=== PATIENT | male | born 1940 | race Caucasian/White ===

== ENCOUNTER 2016-06-17 21:35 | Emergency (ER) | payer MEDICARE, OTHER ==
[2016-06-17 21:47] VITALS: BMI 30.8
--- NOTE | 2016-06-17 22:00 | PDOC ---
History of Present Illness - History of Present Illness Initial Comments: 06/17/16 22:02 The patient is a 76 year old male with a significant past medical history of HTN , HLD, OK, prostate cancer, and chronic lower back pain who presents to the Emergency Department with complaints of chest pain since 2 hours ago. He states that last time he had chest pain was a year ago. Pt states that he takes oxycodone for his back pain. He denies fever, chills, abdominal pain, nausea, vomiting, diarrhea, cough, SOB, palpitations, headache. PMH/PSH: knee surgery, hernia repair ALL: levofloxacin <Susannah Geronimo - Last Filed: 06/17/16 22:06> <Heidi Agudelo - Last Filed: 06/18/16 06:18> - General Chief Complaint: Chest Pain Stated Complaint: CHEST PAIN Time Seen by Provider: 06/17/16 21:52 Past History <Susannah Geronimo - Last Filed: 06/17/16 22:06> - Past Medical History Cancer: Yes (PROSTATE CA) Cardiac Disorders: Yes (OK) GI Disorders: Yes (HERNIA) HTN: Yes - Surgical History Abdominal Surgery: Yes (HERNIA REPAIR) - Psycho/Social/Smoking Cessation Hx Anxiety: No Suicidal Ideation: No Smoking Status: No Smoking History: Never smoked Have you smoked in the past 12 months: No Number of Cigarettes Smoked Daily: 0 Hx Alcohol Use: No Substance Use Type: None <Heidi Agudelo - Last Filed: 06/18/16 06:18> - Past Medical History Allergies/Adverse Reactions: Allergies Allergy/AdvReac Type Severity Reaction Status Date / Time levofloxacin [Levofloxacin] Allergy Mild Itching Verified 06/17/16 21:44 Home Medications: Ambulatory Orders Amlodipine Besylate [Norvasc -] 5 mg PO DAILY #30 tablet 04/01/14 Aspirin [ASA -] 81 mg PO DAILY #30 tab.chew 04/01/14 Atorvastatin Ca [Lipitor] 10 mg PO HS #30 tablet 04/01/14 Lisinopril [Prinivil] 20 mg PO DAILY #30 tablet 04/01/14 Metoprolol Succinate [Toprol XL -] 25 mg PO DAILY #30 tab.sr.24h 04/01/14 Oxycodone HCl [Oxaydo] 7.5 mg PO ASDIR PRN 06/17/16 Oxycodone HCl/Acetaminophen [Percocet 5/325 -] 1 tab PO Q6H #20 tablet MDD 4 Polyethylene Glycol 3350 [Miralax (For Daily Use) -] 17 gm PO ONCE #1 bottle Review of Systems - Review of Systems Able to Perform ROS?: Yes Comments:: 06/17/16 22:03 GENERAL/CONSTITUTIONAL: No: fever, chills, weakness, loss of appetite. HEAD, EYES, EARS, NOSE AND THROAT: No: change in vision, ear pain, discharge, sore throat, throat swelling. CARDIOVASCULAR: Yes: chest pain No: lightheadedness, palpitations, syncope RESPIRATORY: No: cough, shortness of breath, wheezing, hemoptysis, stridor. GASTROINTESTINAL: No: nausea, vomiting, abdominal cramping, diarrhea, rectal bleeding, constipation. GENITOURINARY: No: dysuria, hematuria, frequency, urgency, flank pain. MUSCULOSKELETAL: Yes: back pain No: neck pain, muscle swelling SKIN AND BREASTS: No: lesions, pallor, rash or easy bruising. NEUROLOGIC: No: headache, vertigo, paresthesias, weakness ENDOCRINE: No: unexplained weight gain or loss HEMATOLOGIC/LYMPHATIC: No: anemia, easy bleeding, swelling nodes All Other Systems: Reviewed and Negative <Susannah Geronimo - Last Filed: 06/17/16 22:06> *Physical Exam - Vital Signs Last Vital Signs Temp Pulse Resp BP Pulse Ox 98.4 F 68 24 112/90 97 06/17/16 21:45 06/17/16 21:45 06/17/16 21:45 06/17/16 21:45 06/17/16 21:45 - Physical Exam Comments: 06/17/16 22:04 GENERAL: The patient is in no acute distress. HEAD: Normal with no signs of trauma. EYES: PERRLA, EOMI, sclera anicteric, conjunctiva clear. ENT: Ears normal, nares patent, oropharynx clear without exudates. Moist mucous membranes. NECK: Normal range of motion, supple without lymphadenopathy, JVD, or masses. LUNGS: Breath sounds equal, clear to auscultation bilaterally. No wheezes, and no crackles. HEART:Regular rate and rhythm, normal S1 and S2 without murmur, rub or gallop. ABDOMEN: Soft, nontender, normoactive bowel sounds. No guarding, no rebound. EXTREMITIES: +bilateral lower extremities pitting edema. Normal range of motion. No clubbing or cyanosis. No erythema, or tenderness. NEUROLOGICAL: Cranial nerves II through XII grossly intact. Normal speech. No focal neurological deficits. MUSCULOSKELETAL: Back non-tender to palpation, no CVA tenderness SKIN: Warm, Dry, normal turgor, no rashes or lesions noted. <Susannah Geronimo - Last Filed: 06/17/16 22:06> - Vital Signs Last Vital Signs Temp Pulse Resp BP Pulse Ox 98.4 F 68 24 112/90 97 06/17/16 21:45 06/17/16 21:45 06/17/16 21:45 06/17/16 21:45 06/17/16 21:45 <Heidi Agudelo - Last Filed: 06/18/16 06:18> ED Treatment Course - LABORATORY CBC & Chemistry Diagram: 06/17/16 21:54 06/17/16 21:54 <Susannah Geronimo - Last Filed: 06/17/16 22:06> - LABORATORY CBC & Chemistry Diagram: 06/17/16 21:54 06/17/16 21:54 - RADIOLOGY Radiology Studies Ordered: Category Date Time Status CHEST X-RAY PORTABLE* [RAD] Stat Radiology 06/17/16 21:52 Ordered <Heidi Agudelo - Last Filed: 06/18/16 06:18> Medical Decision Making - Medical Decision Making 06/18/16 00:45 Patient Name: Luis Granados THIS IS A PRELIMINARYREPORT FROM IMAGING SUPPORT DIRECTOR EXAM: CT lumbar spine without contrast IMAGES: 406 EXAM DATE AND TIME: 2016-06-18 00:12:44.0 REASON FOR EXAM: Low back pain radiating to left COMPARISON: No FINDINGS: There is focal large indentation of the superior endplate of L1. However, this looks like it may have been caused by a severe Schmorl's node and could be chronic. If there are prior CTs or x-rays of the lumbar spine I can perform a comparative interpretation to see if this was present previously. Renal cysts are incidentally noted. The remainder of the lumbar vertebrae are normally aligned without fracture or destructive bone lesion. Degenerative changes: One multilevel degenerative disc thinning. At T12-L there is disc bulging and facet hypertrophy mildly narrowing the canal. At L1-2, there is disc bulging and posterior element hypertrophy resulting in moderate canal stenosis. At L2-3, there is , disc bulging and posterior hypertrophy resulting in moderate to severe canal stenosis. At L3-4, there is disc bulging and posterior element hypertrophy resulting in severe canal stenosis. At L4-5, there is disc bulging and posterior element hypertrophy resulting in severe canal stenosis. At L5-S1, there is disc bulging and facet hypertrophy resulting in moderate narrowing of the transverse dimension of the canal. Please note, however, that the cause of the patient's large body habitus causing image degradation and because this is CT, assessment of the degree of canal stenosis may not be completely accurate. MRI is more sensitive for this. THIS DOCUMENT HAS BEEN ELECTRONICALLY SIGNED 06/18/16 06:12 Pt comes with acute mid sternal chest pain and chronic low back pain. His low back pain is secondary to spinal stenosis. I got a CT of his lumbar spine as he has a history of prostate cancer and I want to make sure that he has no metastasis to the spine. CP is unlikely to be cardiac pain, as 2 sets of cardiac enzymes are normal, Chest portable XR is normal, and EKG shows non specific T wave changes but otherwise NSR. <Heidi Agudelo - Last Filed: 06/18/16 06:18> *DC/Admit/Observation/Transfer - Attestations Scribe Attestion: 06/17/16 22:05 Documentation prepared by Susannah Geronimo, acting as nuclear medical tech for Heidi Agudelo MD. <Susannah Geronimo - Last Filed: 06/17/16 22:06> - Discharge Dispostion Admit: No <Heidi Agudelo - Last Filed: 06/18/16 06:18> Diagnosis at time of Disposition: Atypical chest pain, Spinal stenosis - Discharge Dispostion Disposition: HOME Condition at time of disposition: Stable - Prescriptions Prescriptions: Polyethylene Glycol 3350 [Miralax (For Daily Use) -] 17 gm PO ONCE #1 bottle Oxycodone HCl/Acetaminophen [Percocet 5/325 -] 1 tab PO Q6H #20 tablet MDD 4 - Referrals Referrals: STAFF,NOT ON [Primary Care Provider] - - Patient Instructions Printed Discharge Instructions: DI for Atypical Chest Pain, Spinal Stenosis
[2016-06-17] MEDS ORDERED: OXYCODONE/APAP 5/325MG COMBO TABLET PO ONE (22:02)
[2016-06-17] MEDS ORDERED: OXYCODONE/APAP 5/325MG COMBO TABLET ONE (22:05)
[2016-06-17 22:08] LABS: BASOPHIL 1.9 % (0-2.0); EOSINOPHIL 1.9 % (0-4.5); MCH 32.1 pg (25.7-33.7); MCHC 34.6 g/dl (32.0-35.9); MEAN CELL VOLUME 92.7 fl (80-96); NEUTROPHILS 61.8 % (42.8-82.8); PLATELET COUNT 160 K/MM3 (134-434); RDW 14.5 % (11.9-15.9); WHITE BLOOD COUNT 6.5 K/mm3 (4.0-10.0)
[2016-06-17 22:32] LABS: INR 1.12 (0.82-1.09); PROTHROMBIN TIME (PATIENT) 12.3 SEC (9.98-11.88)
[2016-06-17 22:41] LABS: ALBUMIN 3.7 g/dl (3.4-5.0); ANION GAP 9 (8-16); BILIRUBIN,TOTAL 0.7 mg/dL (0.2-1.0); CALCIUM 8.7 mg/dL (8.5-10.1); CO2 29 mmol/L (21-32); CREATININE 1.2 mg/dL (0.7-1.3); GLUCOSE,RANDOM 110 mg/dL (74-106); SGOT/AST 22 U/L (15-37); SGPT/ALT 35 U/L (12-78)
[2016-06-17 22:44] LABS: ALK PHOS 91 U/L (45-117); TROPONIN I < 0.02 ng/ml (0.00-0.05)
[2016-06-18 02:59] LABS: TROPONIN I < 0.02 ng/ml (0.00-0.05)
[2016-06-18 03:53] VITALS: BP 126/74; PULSE 71; TEMP 98.1
--- NOTE | 2016-06-18 23:26 | EKG ---
Test Reason : Blood Pressure : / mmHG Vent. Rate : 068 BPM Atrial Rate : 068 BPM P-R Int : 196 ms QRS Dur : 114 ms QT Int : 418 ms P-R-T Axes : 029 -71 017 degrees QTc Int : 444 ms NORMAL SINUS RHYTHM INCOMPLETE RIGHT BUNDLE BRANCH BLOCK LEFT ANTERIOR FASCICULAR BLOCK ABNORMAL ECG WHEN COMPARED WITH ECG OF 30-MAR-2014 10:51, NO SIGNIFICANT CHANGE WAS FOUND Confirmed by QUINN ALMEIDA, XIANG ([id number]) on 06/18/2016 11:26:06 PM Referred By: Confirmed By:XIANG BALL MD
== END 2016-06-18 03:53 | disposition home or self-care (01) ==
LOC: JER 21:35
DX: R07.89 Other chest pain (principal); M48.06 Spinal stenosis, lumbar region; I25.2 Old myocardial infarction; I10 Essential (primary) hypertension; E78.00 Pure hypercholesterolemia, unspecified; Z85.46 Personal history of malignant neoplasm of prostate
CPT/HCPCS: 36415; 71010-TC; 72131-TC; 80053; 82550; 83880; 84484; 85025; 85610; 93005; 93010; 99284-25

== ENCOUNTER 2016-07-27 10:27 | Emergency (ER) | payer MEDICARE, OTHER ==
[2016-07-27 10:37] VITALS: BP 160/98; PULSE 77; TEMP 97.6; BMI 31.5
[2016-07-27] MEDS ORDERED: OXYCODONE/APAP 5/325MG COMBO TABLET PO ONE (11:29)
[2016-07-27] MEDS ORDERED: OXYCODONE/APAP 5/325MG COMBO TABLET ONE (11:34)
[2016-07-27 11:52] LABS: URINE APPEARANCE CLOUDY; URINE BILIRUBIN NEGATIVE (NEGATIVE); URINE BLOOD NEGATIVE (NEGATIVE); URINE COLOR YELLOW; URINE GLUCOSE (UA) NEGATIVE (NEGATIVE); URINE KETONE NEGATIVE (NEGATIVE); URINE LEUK ESTERASE NEGATIVE (NEGATIVE); URINE NITRITE NEGATIVE (NEGATIVE); URINE PROTEIN NEGATIVE (NEGATIVE); URINE UROBILINOGEN NEGATIVE E.U./dl (0.2-1.0)
--- NOTE | 2016-07-27 14:37 | PDOC ---
History of Present Illness - General Chief Complaint: Pain Stated Complaint: RIGHT SIDE PAIN BACK PAIN Time Seen by Provider: 07/27/16 11:09 History Source: Patient Exam Limitations: No Limitations - History of Present Illness Initial Comments: 07/27/16 14:32 CC continued left lower back pain x >1 year; also chronic right neck pain, also many months; better post percocet in past, none at home; also lives alone Severity: reports: moderate Pain Location: reports: back, neck Method of Injury: Yes: other (no new trauma) Modifying Factors: improves with: pain medication Past History - Past Medical History Allergies/Adverse Reactions: Allergies Allergy/AdvReac Type Severity Reaction Status Date / Time levofloxacin [Levofloxacin] Allergy Mild Itching Verified 07/27/16 10:33 Home Medications: Ambulatory Orders Amlodipine Besylate [Norvasc -] 5 mg PO DAILY #30 tablet 04/01/14 Aspirin [ASA -] 81 mg PO DAILY #30 tab.chew 04/01/14 Atorvastatin Ca [Lipitor] 10 mg PO HS #30 tablet 04/01/14 Lisinopril [Prinivil] 20 mg PO DAILY #30 tablet 04/01/14 Metoprolol Succinate [Toprol XL -] 25 mg PO DAILY #30 tab.sr.24h 04/01/14 Oxycodone HCl [Oxaydo] 7.5 mg PO ASDIR PRN 06/17/16 Oxycodone HCl/Acetaminophen [Percocet 5/325 -] 1 tab PO Q6H #20 tablet MDD 4 Polyethylene Glycol 3350 [Miralax (For Daily Use) -] 17 gm PO ONCE #1 bottle Cancer: Yes (PROSTATE CA) Cardiac Disorders: Yes ([place]) GI Disorders: Yes (HERNIA) HTN: Yes - Surgical History Abdominal Surgery: Yes (HERNIA REPAIR) - Psycho/Social/Smoking Cessation Hx Anxiety: No Suicidal Ideation: No Smoking Status: No Smoking History: Never smoked Have you smoked in the past 12 months: No Number of Cigarettes Smoked Daily: 0 Information on smoking cessation initiated: No Hx Alcohol Use: No Drug/Substance Use Hx: No Substance Use Type: None Review of Systems - Review of Systems Constitutional: No: Chills, Fever, Malaise HEENTM: No: Blurred Vision, Throat Pain, Throat Swelling Respiratory: No: Cough, Wheezing Cardiac (ROS): No: Symptoms Reported, Chest Pain ABD/GI: No: Symptoms Reported : No: Symptoms Reported, Flank Pain, Hematuria, Incontinence Musculoskeletal: Yes: Back Pain, Muscle Pain, Neck Pain Integumentary: No: Bruising Neurological: No: Symptoms reported, Headache, Numbness, Paresthesia, Tingling, Weakness, Dizziness *Physical Exam - Vital Signs Last Vital Signs Temp Pulse Resp BP Pulse Ox 97.6 F 77 18 160/98 100 07/27/16 10:33 07/27/16 10:33 07/27/16 10:33 07/27/16 10:33 07/27/16 10:33 - Physical Exam General Appearance: Yes: Appropriately Dressed. No: Apparent Distress HEENT: positive: TMs Normal, Pharynx Normal Neck: positive: Tender (right lateral posterior lower nck, no redness, no rash, no masses with limited rotation), Decreased range of motion. negative: Rigid Respiratory/Chest: positive: Chest Tender, Lungs Clear Musculoskeletal: positive: Other (tender area left perispinal area at level L 3 - L5) ED Treatment Course - ADDITIONAL ORDERS Additional order review: Laboratory Results 07/27/16 11:29 Urine Color Yellow Urine Appearance Cloudy Urine pH 7.0 Ur Specific [place] 1.013 Urine Protein Negative Urine Glucose (UA) Negative Urine Ketones Negative Urine Blood Negative Urine Nitrite Negative Urine Bilirubin Negative Urine Urobilinogen Negative Ur Leukocyte Esterase Negative - RADIOLOGY Radiology Studies Ordered: Category Date Time Status SPINE-CERVICAL [RAD] Stat Radiology 07/27/16 13:33 Completed - Medications Given in the ED: ED Medications Discontinued Medications Generic Name Dose Route Start Last Admin Trade Name Justin PRN Reason Stop Dose Admin Oxycodone/Acetaminophen 1 combo 07/27/16 11:29 07/27/16 11:35 Percocet 5/325 - PO 07/27/16 11:30 1 combo ONCE ONE Administration Medical Decision Making - Medical Decision Making 07/27/16 14:43 spoke with case management will set up OP NVS for home visit w; spoke with PCP office will see pt in office at 9 am tomorrow; pt agrees with plan *DC/Admit/Observation/Transfer Diagnosis at time of Disposition: Chronic neck and back pain - Discharge Dispostion Disposition: HOME Condition at time of disposition: Stable Admit: No - Patient Instructions Additional Instructions: please see Dr Chopra in office tomorrow at 9 am
== END 2016-07-27 14:59 | disposition home or self-care (01) ==
LOC: JERFT 10:27
DX: M54.5 Low back pain (principal); M54.2 Cervicalgia; G89.29 Other chronic pain; I25.2 Old myocardial infarction; I10 Essential (primary) hypertension; Z85.46 Personal history of malignant neoplasm of prostate
CPT/HCPCS: 72050-TC; 81003; 99281-25

== ENCOUNTER 2016-11-29 13:02 | Emergency (ER) | payer OTHER ==
[2016-11-29 13:18] VITALS: BMI 31.2
--- NOTE | 2016-11-29 14:23 | PDOC ---
History of Present Illness - General History Source: Patient Exam Limitations: No Limitations - History of Present Illness Initial Comments: 11/29/16 14:23 The patient is a 76 year old male with a significant past medical history of HTN, HLD, MS, prostate cancer (7 years ago), and chronic lower back pain( managed with percocet) who presents to the Emergency Department with back pain for 3 days. He states that he has been taking his oxycodone but the pain has been worse than usual. He states that the back pain radiates to the left leg and chest. He also reports dizziness, chills, and leg and toe swelling PCP - Dr. Chopra <Sakina Neal - Last Filed: 11/29/16 14:23> - General History Source: Patient Exam Limitations: No Limitations - History of Present Illness Initial Comments: 11/29/16 14:14 <Marcelina Neil - Last Filed: 11/29/16 19:09> - General Chief Complaint: Pain Stated Complaint: PAIN/ LT SIDE Time Seen by Provider: 11/29/16 13:28 Past History <Sakina Neal - Last Filed: 11/29/16 14:23> - Past Medical History Anemia: No Asthma: No Cancer: Yes (PROSTATE CA) Cardiac Disorders: Yes (MS) CVA: No COPD: No CHF: No Dementia: No Diabetes: No GI Disorders: No Disorders: No HTN: Yes Hypercholesterolemia: Yes Liver Disease: No Seizures: No Thyroid Disease: No - Surgical History Abdominal Surgery: Yes (HERNIA REPAIR) Orthopedic Surgery: Yes (knee replacement) - Psycho/Social/Smoking Cessation Hx Anxiety: No Suicidal Ideation: No Smoking Status: No Smoking History: Never smoked Have you smoked in the past 12 months: No Number of Cigarettes Smoked Daily: 0 Hx Alcohol Use: No Drug/Substance Use Hx: No Substance Use Type: None Hx Substance Use Treatment: No <Marcelina Neil - Last Filed: 11/29/16 19:09> - Past Medical History Allergies/Adverse Reactions: Allergies Allergy/AdvReac Type Severity Reaction Status Date / Time levofloxacin [Levofloxacin] Allergy Mild Itching Verified 11/29/16 13:17 Home Medications: Ambulatory Orders Aspirin [ASA -] 81 mg PO DAILY #30 tab.chew 04/01/14 Atorvastatin Ca [Lipitor] 10 mg PO HS #30 tablet 04/01/14 Amlodipine Besylate [Norvasc -] 10 mg PO DAILY 08/03/16 Brimonidine Tartrate/Timolol [Combigan Eye Drops] 5 ml OP BID 08/03/16 Clopidogrel Bisulfate [Clopidogrel] 75 mg PO DAILY 08/03/16 Gabapentin [Neurontin -] 100 mg PO Q8H 08/03/16 Metoprolol Succinate [Toprol Xl -] 100 mg PO DAILY 08/03/16 Lisinopril/Hydrochlorothiazide [Lisinopril-Hctz 20-12.5 mg Tab] 1 each PO DAILY 08/11/16 Polyethylene Glycol 3350 [Miralax (For Daily Use) -] 17 gm PO ONCE #1 bottle 08/11 Oxycodone HCl/Acetaminophen [Percocet 5-325 mg Tablet] 1 tab PO TID #90 tablet MDD 3 11/21/16 Review of Systems - Review of Systems Able to Perform ROS?: Yes Comments:: 11/29/16 14:24 GENERAL/CONSTITUTIONAL: No fever or chills. No weakness. HEAD, EYES, EARS, NOSE AND THROAT: No change in vision. No ear pain or discharge. No sore throat. GASTROINTESTINAL: No nausea, vomiting, diarrhea or constipation. GENITOURINARY: No dysuria, frequency, or change in urination. CARDIOVASCULAR: No chest pain or shortness of breath. RESPIRATORY: No cough, wheezing, or hemoptysis. MUSCULOSKELETAL: +back pain. No joint or muscle swelling or pain. No neck pain. SKIN: No rash NEUROLOGIC: No headache, vertigo, loss of consciousness, or change in strength/ sensation. ENDOCRINE: No increased thirst. No abnormal weight change. HEMATOLOGIC/LYMPHATIC: No anemia, easy bleeding, or history of blood clots. ALLERGIC/IMMUNOLOGIC: No hives or skin allergy. <Sakina Neal - Last Filed: 11/29/16 14:23> *Physical Exam - Vital Signs Last Vital Signs Temp Pulse Resp BP Pulse Ox 97.7 F 75 20 142/93 98 11/29/16 13:15 11/29/16 13:15 11/29/16 13:15 11/29/16 13:15 11/29/16 13:15 - Physical Exam Comments: 11/29/16 14:24 GENERAL: Awake, alert, and fully oriented, in no acute distress HEAD: No signs of trauma EYES: PERRLA, EOMI, sclera anicteric, conjunctiva clear ENT: Auricles normal inspection, nares patent, Moist mucosa NECK: Normal ROM, supple, no lymphadenopathy, JVD, or masses LUNGS: Breath sounds equal, clear to auscultation bilaterally. No wheezes, and no crackles HEART: Regular rate and rhythm, normal S1 and S2, no murmurs, rubs or gallops ABDOMEN: Soft, nontender, normoactive bowel sounds. No guarding, no rebound. No masses EXTREMITIES: (+) Bilateral lower extremity edema chronic erythematous Normal range of motion. No clubbing or cyanosis. No cords, or tenderness NEUROLOGICAL: (+)No midline spinal tenderness, 5/5 in all extremities motor strength , Patellar reflexes normal.Normal speech SKIN: Warm, Dry, normal turgor, no rashes or lesions noted. <Sakina Neal - Last Filed: 11/29/16 14:23> - Vital Signs Last Vital Signs Temp Pulse Resp BP Pulse Ox 97.7 F 75 20 142/93 98 11/29/16 13:15 11/29/16 13:15 11/29/16 13:15 11/29/16 13:15 11/29/16 13:15 <Marcelina Neil - Last Filed: 11/29/16 19:09> ED Treatment Course - LABORATORY CBC & Chemistry Diagram: 11/29/16 14:07 11/29/16 14:07 <Sakina Neal - Last Filed: 11/29/16 14:23> - LABORATORY CBC & Chemistry Diagram: 11/29/16 14:07 11/29/16 14:07 <Marcelina Neil - Last Filed: 11/29/16 19:09> Medical Decision Making - Medical Decision Making 11/29/16 14:14 76 yo ho HTN HLD prior MS prostate ca, and chronic low back pain, followed by dr. Navarrete for pain, here wtih c/o worseining back pain. pt states has been taking percocet no relief. last took percocet at 7 am. no new weakness or numbnes or tingling. no changes to bowel or bladder. does c/o bilat leg swelling. which he had had in the past. back pain radiates up and down hi left leg and up to his chest. similar to pain in the past. has had a ct of his back may 2016 showing extensive stenosis, compression of L1 endplate by an enlarged node, and DJD. no sob. pcp dr Palencia on exam awake alert lungs clear heart RRR no mrg. abd obese soft NT. ext wwp. mild nonpitting edema. no midline spinal tenderness. lower ext 5/5 strength, sensation intact, patellar reflexes normal differential: worsening of chronic pain, plan xray lumbar spine, pain control. labs with renal function, ekg. reassess. 11/29/16 16:32 pt pain improved will given toradol for additonal relief. labs unremarkable. <Marcelina Neil - Last Filed: 11/29/16 19:09> *DC/Admit/Observation/Transfer - Attestations Scribe Attestion: 11/29/16 14:25 Documentation prepared by AMY Singletary, acting as medical aides teacher for Marcelina Neil MD. <Sakina Neal - Last Filed: 11/29/16 14:23> - Discharge Dispostion Admit: No <Marcelina Neil - Last Filed: 11/29/16 19:09> Diagnosis at time of Disposition: Back pain - Discharge Dispostion Disposition: HOME Condition at time of disposition: Improved - Referrals Referrals: Tali Motley MD [Primary Care Provider] - - Patient Instructions Printed Discharge Instructions: Low Back Pain Additional Instructions: you need to follow up with your [facility] pain specialist . you need to obtain narcotic prescriptions from your pain doctor. return for any problems or concerns.
[2016-11-29] MEDS ORDERED: OXYCODONE/APAP 5/325MG COMBO TABLET PO ONE (14:24)
[2016-11-29] MEDS ORDERED: OXYCODONE/APAP 5/325MG COMBO TABLET ONE (14:26)
[2016-11-29 14:28] LABS: BASOPHIL 1.1 % (0-2.0); EOSINOPHIL 1.6 % (0-4.5); MCHC 34.3 g/dl (32.0-35.9); MEAN CELL VOLUME 90.4 fl (80-96); MEAN PLT VOLUME 9.2 fl (7.5-11.1); NEUTROPHILS 59.5 % (42.8-82.8); PLATELET COUNT 198 K/MM3 (134-434); RDW 13.5 % (11.9-15.9); WHITE BLOOD COUNT 8.2 K/mm3 (4.0-10.0)
[2016-11-29 14:29] LABS: URINE APPEARANCE CLOUDY; URINE BILIRUBIN NEGATIVE (NEGATIVE); URINE BLOOD NEGATIVE (NEGATIVE); URINE COLOR YELLOW; URINE GLUCOSE (UA) NEGATIVE (NEGATIVE); URINE KETONE NEGATIVE (NEGATIVE); URINE LEUK ESTERASE NEGATIVE (NEGATIVE); URINE NITRITE NEGATIVE (NEGATIVE); URINE UROBILINOGEN NEGATIVE E.U./dl (0.2-1.0)
[2016-11-29 14:35] LABS: URINE PROTEIN 1+ (NEGATIVE)
[2016-11-29 14:39] LABS: URINE RBC 1 /hpf (0-3); URINE WBC <1 /hpf (3-5)
[2016-11-29 14:54] LABS: ALK PHOS 84 U/L (45-117); ANION GAP 9 (8-16); BILIRUBIN,TOTAL 0.8 mg/dL (0.2-1.0); CALCIUM 9.3 mg/dL (8.5-10.1); CO2 31 mmol/L (21-32); GLUCOSE,RANDOM 90 mg/dL (74-106); SGOT/AST 21 U/L (15-37); SGPT/ALT 29 U/L (12-78); TOT PROT 7.9 g/dl (6.4-8.2)
[2016-11-29] MEDS ORDERED: KETOROLAC TROMETHAMINE 30 MG/1 ML VIAL IVPUSH ONE (16:27)
[2016-11-29] MEDS ORDERED: KETOROLAC TROMETHAMINE 30 MG/1 ML VIAL ONE (16:34)
[2016-11-29 19:23] VITALS: BP 142/96; PULSE 79; TEMP 97.6
== END 2016-11-29 19:24 | disposition home or self-care (01) ==
LOC: JER 13:02
PROC: 3E0333Z Introduction of Anti-inflammatory into Peripheral Vein, Percutaneous Approach (ICD-10-PCS; principal; 2016-11-29)
DX: M54.5 Low back pain (principal); I10 Essential (primary) hypertension; E78.5 Hyperlipidemia, unspecified; I25.2 Old myocardial infarction; G89.29 Other chronic pain
CPT/HCPCS: 36415; 80053; 81003; 81015; 85025; 96374; 99284-25

== ENCOUNTER 2017-03-20 08:39 | Day surgery (SDC) | payer MEDICARE ==
[2017-03-19 13:50] VITALS: BMI 31.2
[2017-03-20 08:51] LABS: BASOPHIL 1.3 % (0-2.0); EOSINOPHIL 2.1 % (0-4.5); MCH 31.5 pg (25.7-33.7); MCHC 34.5 g/dl (32.0-35.9); MEAN CELL VOLUME 91.3 fl (80-96); MEAN PLT VOLUME 8.4 fl (7.5-11.1); NEUTROPHILS 65.8 % (42.8-82.8); PLATELET COUNT 177 K/MM3 (134-434); RDW 13.3 % (11.9-15.9); WHITE BLOOD COUNT 6.3 K/mm3 (4.0-10.0)
[2017-03-20 09:26] LABS: INR 1.09 (0.82-1.09); PROTHROMBIN TIME (PATIENT) 12.3 SEC (9.98-11.88)
[2017-03-20 12:21] VITALS: BP 134/86; PULSE 58; TEMP 97.8
--- NOTE | 2017-03-22 15:59 | PATH ---
Cytology Non-Gynecological Report Patient Name: JAMMIE RODRIGUEZ [facility]. Rec. #: [id number] /Age/Gender: 1940 (Age: 77) / M Account: [id number] Location: RADIOLOGY CAT S Taken: 03/20/2017 Received: 03/20/2017 Reported: 03/22/2017 Physicians: Alexandr Ryan M.D. Specimen(s) Received MISCELLANEOUS FLUID LEFT NECK CYST Clinical History Neck cyst Final Diagnosis NECK, LEFT, CYST, FINE NEEDLE ASPIRATION: SATISFACTORY FOR EVALUATION NO MALIGNANT CELLS IDENTIFIED. CYSTIC LESION WITH RARE MACROPHAGES AND RARE DEGENERATED CELLS. RARE MACROPHAGES, RARE DEGENERATED CELLS AND CYST/CRYSTALLINE DEBRIS PRESENT. Comment: Further classification is precluded by the absence of sufficient epithelium. Suggest clinical/radiologic correlation. If there is persistent clinical concern for a neoplasm, suggest repeat FNA from of any residual solid component, as clinically warranted. Electronically Signed Laurence Calvo M.D. Gross Description Approximately 50 cc of straw fluid received fixed in 50% alcohol. Two cytofunnels and one cellblock prepared.
== END 2017-03-20 12:20 | disposition home or self-care (01) ==
LOC: JRADIR 08:39
PROVIDERS: ATTEND Otolaryngology
PROC: 07D23ZX Extraction of Left Neck Lymphatic, Percutaneous Approach, Diagnostic (ICD-10-PCS; principal; 2017-03-20)
DX: K11.6 Mucocele of salivary gland (principal)
CPT/HCPCS: 36415; 76942; 85025; 85610; 88173; 88305-TC

== ENCOUNTER 2017-08-26 04:36 | Emergency (ER) | payer MEDICARE ==
[2017-08-26 04:51] VITALS: BP 130/89; PULSE 92; TEMP 97.6; BMI 29.9
--- NOTE | 2017-08-26 05:16 | PDOC ---
History of Present Illness - General Chief Complaint: Pain Stated Complaint: JOINT PAIN Time Seen by Provider: 08/26/17 04:45 - History of Present Illness Initial Comments: 08/26/17 05:03 77yo M hx HTN, HLD, CAD s/p CO, prostate ca (7 years ago) s/p prostatectomy and chronic back and ankle pain followed by pain management presents to the emergency Department with right ankle pain. Patient reports this is similar to his chronic pain, however he presents to the emergency department requesting a injection into his ankle. There has been no change to the severity of the pain. Patient is on Percocet for his chronic pain which she took an hour prior to arrival in the emergency department. He denies any recent injuries to the ankle. Pt able to bear weight on the ankle. He has no other complaints, denies fevers, chills, chest pain, shortness of breath, abdominal pain, Past History - Past Medical History Allergies/Adverse Reactions: Allergies Allergy/AdvReac Type Severity Reaction Status Date / Time levofloxacin [Levofloxacin] Allergy Mild Itching Verified 08/26/17 04:50 Home Medications: Ambulatory Orders Atorvastatin Ca [Lipitor] 10 mg PO HS #30 tablet 04/01/14 Amlodipine Besylate [Norvasc -] 10 mg PO DAILY 08/03/16 Clopidogrel Bisulfate [Clopidogrel] 75 mg PO DAILY 08/03/16 Docusate Sodium [Colace -] 100 mg PO TID 04/16/17 Polyethylene Glycol 3350 [Miralax (For Bowel Prep) -] 17 gm PO DAILY 04/16/17 Baclofen 10 mg PO DAILY 30 Days #30 tablet MDD 1 05/15/17 Lisinopril/Hydrochlorothiazide [Lisinopril-Hctz 20-12.5 mg Tab] 1 each PO DAILY #30 tablet MDD 1 05/15/17 Metoprolol Succinate [Toprol XL -] 100 mg PO DAILY #30 tab.sr.24h MDD 2 Oxycodone HCl/Acetaminophen [Percocet 5-325 mg Tablet] 1 tab PO TID #90 tablet MDD 3 08/09/17 Anemia: No Asthma: No Cancer: Yes (PROSTATE CA) Cardiac Disorders: Yes ([place]) CVA: No COPD: No CHF: No DVT: No Dementia: No Diabetes: No GI Disorders: No Disorders: No HTN: Yes Hypercholesterolemia: Yes Liver Disease: No Seizures: No Thyroid Disease: No - Surgical History Abdominal Surgery: Yes (HERNIA REPAIR) Orthopedic Surgery: Yes (knee replacement) - Suicide/Smoking/Psychosocial Hx Smoking Status: No Smoking History: Never smoked Have you smoked in the past 12 months: No Number of Cigarettes Smoked Daily: 0 Information on smoking cessation initiated: No Hx Alcohol Use: No Drug/Substance Use Hx: No Substance Use Type: None Hx Substance Use Treatment: No Review of Systems - Review of Systems Comments:: 08/26/17 05:06 GENERAL/CONSTITUTIONAL: No fever or chills. No weakness. HEAD, EYES, EARS, NOSE AND THROAT: No change in vision. No ear pain or discharge. No sore throat. GASTROINTESTINAL: No nausea, vomiting, diarrhea or constipation. GENITOURINARY: No dysuria, frequency, or change in urination. CARDIOVASCULAR: No chest pain or shortness of breath. RESPIRATORY: No cough, wheezing, or hemoptysis. MUSCULOSKELETAL: +ankle pain. No neck or back pain. SKIN: No rash NEUROLOGIC: No headache, vertigo, loss of consciousness, or change in strength/ sensation. ENDOCRINE: No increased thirst. No abnormal weight change. HEMATOLOGIC/LYMPHATIC: No anemia, easy bleeding, or history of blood clots. ALLERGIC/IMMUNOLOGIC: No hives or skin allergy. *Physical Exam - Vital Signs Last Vital Signs Temp Pulse Resp BP Pulse Ox 97.6 F 92 H 20 130/89 98 08/26/17 04:50 08/26/17 04:50 08/26/17 04:50 08/26/17 04:50 08/26/17 04:50 - Physical Exam Comments: 08/26/17 05:07 GENERAL: Awake, alert, and fully oriented, in no acute distress HEAD: No signs of trauma EYES: PERRLA, EOMI, sclera anicteric, conjunctiva clear ENT: Auricles normal inspection, hearing grossly normal, nares patent, oropharynx clear without exudates. Moist mucosa NECK: Normal ROM, supple, no lymphadenopathy, JVD, or masses LUNGS: Breath sounds equal, clear to auscultation bilaterally. No wheezes, and no crackles HEART: Regular rate and rhythm, normal S1 and S2, no murmurs, rubs or gallops ABDOMEN: Soft, nontender, normoactive bowel sounds. No guarding, no rebound. No masses EXTREMITIES: FROM, R ankle with ttp anteriorly, no malleolar ttp, mild edema ( present on R ankle as well, symmetric), no deformities, no warmth. 2+ peripheral pulses b/l. Normal strength dorsi and plantar flexion Otherwise: Normal range of motion. No clubbing or cyanosis. No cords, erythema , or tenderness NEUROLOGICAL: Normal speech, cranial nerves intact, negative pronator drift, 5/ 5 strength in all 4 extremities, normal sensation to light touch in all 4 extremities, normal cerebellar exam, normal, steady gait with walker, normal reflexes and tone SKIN: Warm, Dry, normal turgor, no rashes or lesions noted. Medical Decision Making - Medical Decision Making 08/26/17 05:16 77-year-old male with multiple medical problems including chronic back and ankle pain presents the emergency department requesting an injection into his ankle for his chronic pain. On exam no evidence of deformity, and patient is neurovascularly intact, able to bear weight and ambulate around the emergency department with his walker. Patient appears comfortable. Discussed with patient that we do not offer joint injections in the emergency department. Advised patient to continue to take his pain medications and follow-up with his pain management doctor if his pain is not well controlled. I stop reviewed, patient has a current prescription for Percocet through mid August. Patient requests discharge home. We will apply EMLA and Will wrap for comfort at this time. I discussed the physical exam findings, ancillary test results and final diagnoses with the patient. I answered all of the patient's questions. The patient was satisfied with the care received and felt comfortable with the discharge plan and treatment plan. The patient will call their primary care physician within 24 hours to arrange follow-up and will return to the Emergency Department with any new, persistent or worsening symptoms. *DC/Admit/Observation/Transfer Diagnosis at time of Disposition: Chronic pain - Discharge Dispostion Disposition: HOME Condition at time of disposition: Stable - Referrals - Patient Instructions Printed Discharge Instructions: DI for Ankle Pain Additional Instructions: As discussed, follow up with your pain management doctor within 1 week. Follow up with your primary doctor within 1 week. Take your medications as prescribed. Return to the emergency department if you have any new, worsening or concerning symptoms. - Post Discharge Activity - Attestations Physician Attestion: 08/26/17 05:21 I, Dr. Radha Escoto MD, attest that this document has been prepared under my direction and personally reviewed by me in its entirety. I further attest, that it accurately reflects all work, treatment, procedures and medical decision -making performed by me.
[2017-08-26] MEDS ORDERED: LIDOCAINE 2.5%/PRILOCAINE 2.5% (5 Gram/TUBE) TP ONE ×2 (05:22)
== END 2017-08-26 05:30 | disposition home or self-care (01) ==
LOC: JER 04:36
DX: M25.571 Pain in right ankle and joints of right foot (principal); G89.29 Other chronic pain; M54.5 Low back pain; I25.2 Old myocardial infarction; I10 Essential (primary) hypertension; E78.00 Pure hypercholesterolemia, unspecified; Z85.46 Personal history of malignant neoplasm of prostate; Z90.79 Acquired absence of other genital organ(s); Z96.659 Presence of unspecified artificial knee joint
CPT/HCPCS: 99281-25

== ENCOUNTER 2018-07-26 19:03 | Inpatient (IN) | payer OTHER ==
[2018-07-26] MEDS ORDERED: ASPIRIN 81 MG CHEWABLE TABLETS PO ONE (19:12)
--- NOTE | 2018-07-26 19:12 | PDOC ---
Rapid Medical Evaluation Time Seen by Provider: 07/26/18 19:11 Medical Evaluation: Allergies Allergy/AdvReac Type Severity Reaction Status Date / Time levofloxacin [Levofloxacin] Allergy Mild Itching Verified 08/26/17 04:50 07/26/18 19:11 I have performed a brief in-person evaluation of this patient. The patient presents with a chief complaint of:CP x 1 hour Pertinent physical exam findings:anxious with SOB I have ordered the following:cardiac work up The patient will proceed to the ED for further evaluation. Discharge Disposition - Diagnosis Chest pain - Referrals - Patient Instructions - Post Discharge Activity
--- NOTE | 2018-07-26 19:32 | PDOC ---
Attending Attestation - HPI HPI: 07/26/18 22:03 The patient is a 78 year old male, with a significant past medical history of HTN, HLD, CAD s/p UT, prostate ca.(7 years ago s/p prostatectomy), who presents to the emergency department with, chest pain. Patient describes his chest pain as retrosternal, nonpleuritic, pressure-like, burning onsetting after eating with associated nausea and lightheadedness. He notes the pain lasted approximately 90 minutes but, has now resolved. He denies palpitations or orthopnea. He denies any recent fevers, chills, headache or dizziness. He denies any recent nausea, vomit, diarrhea or constipation. He denies any recent dysuria, frequency, urgency or hematuria. Allergies: NKDA <Eboni Machuca - Last Filed: 07/26/18 22:03> - Resident Resident Name: Martin Madison - ED Attending Attestation I have performed the following: I have examined & evaluated the patient, The case was reviewed & discussed with the resident, I agree w/resident's findings & plan, Exceptions are as noted - Physicial Exam PE: 07/26/18 20:58 GENERAL: The patient is in no acute distress. LUNGS: Breath sounds equal, clear to auscultation bilaterally. No wheezes, and no crackles. HEART:Regular rate and rhythm, normal S1 and S2 ABDOMEN: Soft, nontender, normoactive bowel sounds. No guarding, no rebound. EXTREMITIES: Normal range of motion, no edema. NEUROLOGICAL: Cranial nerves II through XII grossly intact. Normal speech. No focal neurological deficits. SKIN: Warm, Dry, normal turgor, no rashes or lesions noted. - Medical Decision Making 07/26/18 20:49 Mr Granados is an 78 yo M h/o HTN, HLD, CAD s/p UT, prostate ca s/p prostatectomy and chronic back pain who presents to the ER with a complaint of chest pain. He reports midsternal chest burning pain, occuring while eating. Pain constant, no radiation. Pt presents to the ER due to severity of symptoms. Pain was 10/10. On my assessment, pain 4/10. He burped several time and chest pain improved. (+) N, v, lightheadedness. Took two Tylenol tablets. 07/26/18 20:49 EKG - NSR rate of 75 bpm, LAD, intervals nml, no st elevation or depression, no pathological Q waves, t waves flattened, incomplete RBBB 07/26/18 20:50 Laboratory Tests 07/26/18 07/26/18 19:30 19:30 WBC 6.3 Hgb 16.0 Hct 45.1 Plt Count 173 D Sodium 137 Potassium 3.2 L Chloride 102 Carbon Dioxide 29 BUN 20 H Creatinine 1.0 Random Glucose 124 H Troponin I < 0.02 07/26/18 20:53 Nitropaste applied, protonix given Pt resting comfortably in bed When awoken, he reports chest burning is 11/0407/26/18 23:39 Laboratory Tests 07/26/18 22:50 Creatine Kinase 77 CK-MB (CK-2) < 1.0 Troponin I < 0.02 Repeat EKG being done now 07/26/18 23:45 Repeat EKG - NSR rate of 70 bpm, LAD, intervals nml, no st elevation or depression, no pathological Q waves, t waves flattened, incomplete RBBB <Pattie Quintero - Last Filed: 07/26/18 23:46> Attestations - Attestations 07/26/18 22:03 Documentation prepared by Eboni Machuca, acting as claim review medical director for Pattie Quintero MD. <Eboni Machuca - Last Filed: 07/26/18 22:03>
[2018-07-26] MEDS ORDERED: ASPIRIN 81 MG CHEWABLE TABLETS ONE (19:35)
--- NOTE | 2018-07-26 19:38 | PDOC ---
History of Present Illness - General Chief Complaint: Chest Pain Stated Complaint: CHEST PAIN Time Seen by Provider: 07/26/18 19:11 - History of Present Illness Initial Comments: 07/26/18 19:34 78 yo M HTN, HLD, CAD s/p MO, prostate ca.( 7 years ago), prostastectomy who p/ w retrosternal chest pain. Patient reports sitting down this evening and eating , when he experienced sudden onset of unremitting, non pleuritic, non exertional retrosternal and left sided chest pressure, and burning. Pain lasted for approximately 90 minutes, and resolved. Pain now improved. Also endorsed nausea without vomiting, and lightheadedness at time of symptom onset. . Took two Tylenol tablets. Denies h/o similar presentation. does not f/w cardiology. No home O2 requirements. Normal Echo 04/05/2017 Dr. No. Patient denies GARCIA, vision change, palpitations, cough, wheezing, orthopena, PND , leg swelling/pain, F,C,urinary complaints, abdominal pain, diarrhea, hematuria , BPR, constipation, lightheadedness, weakness, sensory changes. PMHx: as noted above. Denies h/o MO, stent placement, CABG, PE/DVT ROS: as noted SHx: Denies Etoh, IVDA, tobacco use Allergies: NKDA Past History - Past Medical History Allergies/Adverse Reactions: Allergies Allergy/AdvReac Type Severity Reaction Status Date / Time levofloxacin [Levofloxacin] Allergy Mild Itching Verified 07/26/18 19:25 Home Medications: Ambulatory Orders Atorvastatin Ca [Lipitor] 10 mg PO HS #30 tablet 04/01/14 Clopidogrel Bisulfate [Clopidogrel] 75 mg PO DAILY 08/03/16 Metoprolol Succinate [Toprol XL -] 100 mg PO DAILY #30 tab.sr.24h 02/07/18 Acetaminophen 2 tab PO BID PRN #100 capsule 06/21/18 Diclofenac Sodium [Voltaren] 2 gm TP TID PRN #90 gel..gram. 06/21/18 Amlodipine Besylate [Norvasc -] 10 mg PO DAILY #30 tablet 07/24/18 Baclofen 10 mg PO DAILY 30 Days #30 tablet MDD 1 07/24/18 Docusate Sodium [Colace -] 100 mg PO TID #90 capsule 07/24/18 Lisinopril/Hydrochlorothiazide [Lisinopril-Hctz 20-12.5 mg Tab] 1 each PO DAILY #30 tablet MDD 1 07/24/18 Multivitamin [Multiple Vitamins] 1 each PO DAILY #30 tablet 07/24/18 Oxycodone HCl/Acetaminophen [Percocet 5-325 mg Tablet] 1 tab PO BID #60 tablet MDD 2 07/24/18 Polyethylene Glycol 3350 [Miralax (For Bowel Prep) -] 17 gm PO DAILY #1 btl Anemia: No Asthma: No Cancer: Yes (PROSTATE CA) Cardiac Disorders: Yes ([place]) CVA: No COPD: No CHF: No DVT: No Dementia: No Diabetes: No GI Disorders: No Disorders: No HTN: Yes Hypercholesterolemia: Yes Liver Disease: No Seizures: No Thyroid Disease: No - Surgical History Abdominal Surgery: Yes (HERNIA REPAIR) Orthopedic Surgery: Yes (knee replacement) - Immunization History Immunization Up to Date: Yes - Suicide/Smoking/Psychosocial Hx Smoking Status: No Smoking History: Never smoked Have you smoked in the past 12 months: No Number of Cigarettes Smoked Daily: 0 Information on smoking cessation initiated: No Hx Alcohol Use: No Drug/Substance Use Hx: No Substance Use Type: None Hx Substance Use Treatment: No Review of Systems - Review of Systems Comments:: 07/26/18 19:37 GENERAL/CONSTITUTIONAL: No fever or chills. No weakness. HEAD, EYES, EARS, NOSE AND THROAT: No change in vision. No ear pain or discharge. No sore throat. CARDIOVASCULAR: + chest pain and shortness of breath RESPIRATORY: No cough, wheezing, or hemoptysis. GASTROINTESTINAL: + nausea. No, vomiting, diarrhea or constipation. GENITOURINARY: No dysuria, frequency, or change in urination. MUSCULOSKELETAL: No joint or muscle swelling or pain. No neck or back pain. SKIN: No rash NEUROLOGIC: No headache, vertigo, loss of consciousness, or change in strength/ sensation. ENDOCRINE: No increased thirst. No abnormal weight change HEMATOLOGIC/LYMPHATIC: No anemia, easy bleeding, or history of blood clots. ALLERGIC/IMMUNOLOGIC: No hives or skin allergy. *Physical Exam - Vital Signs Last Vital Signs Temp Pulse Resp BP Pulse Ox 97.9 F 75 18 188/86 H 97 07/26/18 19:23 07/26/18 19:23 07/26/18 19:23 07/26/18 19:23 07/26/18 19:23 - Physical Exam Comments: 07/26/18 19:37 GENERAL: Awake, alert, and fully oriented, in no acute distress HEAD: No signs of trauma, normocephalic, atraumatic EYES: PERRLA, EOMI, sclera anicteric, conjunctiva clear ENT: Hearing grossly normal, nares patent, oropharynx clear without exudates. Moist mucosa NECK: Normal ROM, supple, no lymphadenopathy, JVD, or masses LUNGS: No distress, speaks full sentences, clear to auscultation bilaterally HEART: Regular rate and rhythm, normal S1 and S2, no murmurs, rubs or gallops, peripheral pulses normal and equal bilaterally. ABDOMEN: Soft, nontender, normoactive bowel sounds. No guarding, no rebound. No masses EXTREMITIES : Normal inspection, Normal range of motion, no edema. No clubbing or cyanosis. NEUROLOGICAL: Cranial nerves II through XII grossly intact. Normal speech, normal gait, no focal sensorimotor deficits SKIN: Warm, Dry, normal turgor, no rashes or lesions noted Moderate Sedation - Procedure Monitoring Vital Signs: Procedure Monitoring Vital Signs Temperature 97.9 F 07/26/18 19:23 Pulse Rate 75 07/26/18 19:23 Respiratory Rate 18 07/26/18 19:23 Blood Pressure 188/86 H 07/26/18 19:23 O2 Sat by Pulse Oximetry (%) 97 07/26/18 19:23 Heart Score/ECG Review - History History: Slightly suspicious - Electrocardiogram EKG: Non specific repolarization disturbance - Age Age: >/= 65 - Risk Factors Risk Factors Heart Score: Yes Hx Hypercholesterolemia, Yes Hx Hypertension, Yes Hx Diabetes, Yes Positive family hx of cardiac disease Based on the list above the patient has:: >/=3 risk factors or Hx atherosclerotic disease - Troponin Troponin: </= normal limit - Score Heart Score - Total: 5 ED Treatment Course - LABORATORY CBC & Chemistry Diagram: 07/26/18 19:30 07/26/18 19:30 Medical Decision Making - Medical Decision Making 07/26/18 19:37 78 yo M HTN, HLD, CAD s/p MO, prostate ca.( 7 years ago), prostastectomy who p/ w sudden onset of unremitting, non pleuritic, non exertional retrosternal and left sided chest pressure, lightheadedness, and SOB while eating. Vitals wnl, AF , A&Ox3. ACS/MO r/o. R/o PNA. Low risk PE based on Weils. Will consider pericarditis, pleural effusion, gastritis, enteritis, pancreatitis. No evidence of fluid/volume overload. Low suspicion acute CHF, or asthma/COPD. Ed Course: 07/26/18 19:37 EKG: NSR, with incomplete RBBB, left anterior fasicular block, absent acute ALANIS , STD. Normal interval duration and axis. Similar to prior EKG ( 04/05/2017) 07/26/18 20:06 ASA 162 mg 07/26/18 20:13 CBC: Unremarkable Heart score 5 07/26/18 20:25 CMP: Unremarkable Trop: Neg Patient endorsed to Dr. Perry by Admitted to tele/obs. *DC/Admit/Observation/Transfer Diagnosis at time of Disposition: Chest pain Qualifiers: Chest pain type: unspecified Qualified Code(s): R07.9 - Chest pain, unspecified - Discharge Dispostion Disposition: HOME Condition at time of disposition: Stable Decision to Admit order: Yes - Referrals - Patient Instructions Printed Discharge Instructions: DI for Atypical Chest Pain - Post Discharge Activity
[2018-07-26 20:01] LABS: EOS % 1.8 % (0-4.5); HEMATOCRIT 45.1 % (35.4-49); LYMPH % 23.4 % (8-40); MCH 32.5 pg (25.7-33.7); MCHC 35.5 g/dl (32.0-35.9); MEAN CELL VOLUME 91.5 fl (80-96); MEAN PLT VOLUME 9.5 fl (7.5-11.1); MONO % 11.6 % (3.8-10.2); NEUT % 62.2 % (42.8-82.8); PLATELET COUNT 173 K/MM3 (134-434); RBC 4.92 M/mm3 (4.00-5.60); RDW 13.6 % (11.9-15.9); WHITE BLOOD COUNT 6.3 K/mm3 (4.0-10.0)
[2018-07-26 20:13] LABS: INR 1.06 (0.83-1.09); PROTHROMBIN TIME (PATIENT) 12.5 SEC (9.7-13.0)
[2018-07-26 20:24] LABS: ALBUMIN 3.6 g/dl (3.4-5.0); ALK PHOS 86 U/L (45-117); ANION GAP 7 MMOL/L (8-16); BILIRUBIN,TOTAL 0.6 mg/dL (0.2-1); BLOOD UREA NITROGEN 20 mg/dL (7-18); CALCIUM 8.9 mg/dL (8.5-10.1); CHLORIDE 102 mmol/L (98-107); CO2 29 mmol/L (21-32); GLUCOSE,RANDOM 124 mg/dL (74-106); MAGNESIUM 2.1 mg/dL (1.8-2.4); POTASSIUM 3.2 mmol/L (3.5-5.1); SGOT/AST 15 U/L (15-37); SGPT/ALT 24 U/L (13-61); SODIUM 137 mmol/L (136-145); TOT PROT 7.2 g/dl (6.4-8.2)
--- NOTE | 2018-07-26 21:01 | HP ---
CHIEF COMPLAINT: PCP:none HISTORY OF PRESENT ILLNESS: 78 yo M HTN, HLD, CAD s/p [place], prostate ca.( 7 years ago), prostastectomy who p/ w retrosternal chest pain. Patient reports sitting down this evening and eating , when he experienced sudden onset of unremitting, non pleuritic, non exertional retrosternal and left sided chest pressure, and burning. Pain lasted for approximately 90 minutes, and resolved. Pain now improved. Also endorsed nausea without vomiting, and lightheadedness at time of symptom onset. . Took two Tylenol tablets. Denies h/o similar presentation. does not f/w cardiology. No home O2 requirements. Normal Echo 04/05/2017 Dr. No. Patient denies GARCIA, vision change, palpitations, cough, wheezing, orthopena, PND , leg swelling/pain, F,C,urinary complaints, abdominal pain, diarrhea, hematuria , BPR, constipation, lightheadedness, weakness, sensory changes. PMHx: as noted above. Denies h/o AL, stent placement, CABG, PE/DVT ROS: as noted SHx: Denies Etoh, IVDA, tobacco use Allergies: NKDA ER course was notable for: (1) (2) (3) Recent Travel: PAST MEDICAL HISTORY: PAST SURGICAL HISTORY: Social History: Smoking: Alcohol: Drugs: Family History: Allergies levofloxacin [Levofloxacin] Allergy (Mild, Verified 07/26/18 19:25) Itching ADR REPORTED 08/30/11 HOME MEDICATIONS: Home Medications Medication Instructions Recorded Atorvastatin Ca [Lipitor] 10 mg PO HS #30 tablet 04/01/14 Clopidogrel Bisulfate [Clopidogrel] 75 mg PO DAILY 08/03/16 Metoprolol Succinate [Toprol XL -] 100 mg PO DAILY #30 tab.sr.24h 02/07/18 Acetaminophen 2 tab PO BID PRN #100 capsule 06/21/18 Diclofenac Sodium [Voltaren] 2 gm TP TID PRN #90 gel..gram. 06/21/18 Amlodipine Besylate [Norvasc -] 10 mg PO DAILY #30 tablet 07/24/18 Baclofen 10 mg PO DAILY 30 Days #30 tablet 07/24/18 MDD 1 Docusate Sodium [Colace -] 100 mg PO TID #90 capsule 07/24/18 Lisinopril/Hydrochlorothiazide 1 each PO DAILY #30 tablet MDD 1 07/24/18 [Lisinopril-Hctz 20-12.5 mg Tab] Multivitamin [Multiple Vitamins] 1 each PO DAILY #30 tablet 07/24/18 Oxycodone HCl/Acetaminophen 1 tab PO BID #60 tablet MDD 2 07/24/18 [Percocet 5-325 mg Tablet] Polyethylene Glycol 3350 [Miralax 17 gm PO DAILY #1 btl 07/24/18 (For Bowel Prep) -] REVIEW OF SYSTEMS CONSTITUTIONAL: Absent: fever, chills, diaphoresis, generalized weakness, malaise, loss of appetite, weight change HEENT: Absent: rhinorrhea, nasal congestion, throat pain, throat swelling, difficulty swallowing, mouth swelling, ear pain, eye pain, visual changes CARDIOVASCULAR: Absent: chest pain, syncope, palpitations, irregular heart rate, lightheadedness , peripheral edema RESPIRATORY: Absent: cough, shortness of breath, dyspnea with exertion, orthopnea, wheezing, stridor, hemoptysis GASTROINTESTINAL: Absent: abdominal pain, abdominal distension, nausea, vomiting, diarrhea, constipation, melena, hematochezia GENITOURINARY: Absent: dysuria, frequency, urgency, hesitancy, hematuria, flank pain, genital pain MUSCULOSKELETAL: Absent: myalgia, arthralgia, joint swelling, back pain, neck pain SKIN: Absent: rash, itching, pallor HEMATOLOGIC/IMMUNOLOGIC: Absent: easy bleeding, easy bruising, lymphadenopathy, frequent infections ENDOCRINE: Absent: unexplained weight gain, unexplained weight loss, heat intolerance, cold intolerance NEUROLOGIC: Absent: headache, focal weakness or paresthesias, dizziness, unsteady gait, seizure, mental status changes, bladder or bowel incontinence PSYCHIATRIC: Absent: anxiety, depression, suicidal or homicidal ideation, hallucinations. PHYSICAL EXAMINATION Vital Signs - 24 hr 07/26/18 19:23 Temperature 97.9 F Pulse Rate 75 Respiratory 18 Rate Blood Pressure 188/86 H O2 Sat by Pulse 97 Oximetry (%) GENERAL: Awake, alert, and fully oriented, in no acute distress. HEAD: Normal with no signs of trauma. EYES: Pupils equal, round and reactive to light, extraocular movements intact, sclera anicteric, conjunctiva clear. No lid lag. EARS, NOSE, THROAT: Ears normal, nares patent, oropharynx clear without exudates. Moist mucous membranes. NECK: Normal range of motion, supple without lymphadenopathy, JVD, or masses. LUNGS: Breath sounds equal, clear to auscultation bilaterally. No wheezes, and no crackles. No accessory muscle use. HEART: Regular rate and rhythm, normal S1 and S2 without murmur, rub or gallop. ABDOMEN: Soft, nontender, not distended, normoactive bowel sounds, no guarding, no rebound, no masses. No hepatomegaly or splenomegaly. MUSCULOSKELETAL: Normal range of motion at all joints. No bony deformities or tenderness. No CVA tenderness. UPPER EXTREMITIES: 2+ pulses, warm, well-perfused. No cyanosis. No clubbing. No peripheral edema. LOWER EXTREMITIES: 2+ pulses, warm, well-perfused. No calf tenderness. No peripheral edema. NEUROLOGICAL: Cranial nerves II-XII intact. Normal speech. Normal gait. PSYCHIATRIC: Cooperative. Good eye contact. Appropriate mood and affect. SKIN: Warm, dry, normal turgor, no rashes or lesions noted, normal capillary refill. Laboratory Results - last 24 hr 07/26/18 07/26/18 07/26/18 19:30 19:30 19:30 WBC 6.3 RBC 4.92 Hgb 16.0 Hct 45.1 MCV 91.5 MCH 32.5 MCHC 35.5 RDW 13.6 Plt Count 173 D MPV 9.5 Absolute Neuts (auto) 3.9 Neutrophils % 62.2 Lymphocytes % 23.4 Monocytes % 11.6 H Eosinophils % 1.8 Basophils % 1.0 Nucleated RBC % 0 PT with INR 12.50 INR 1.06 Sodium 137 Potassium 3.2 L Chloride 102 Carbon Dioxide 29 Anion Gap 7 L BUN 20 H Creatinine 1.0 Creat Clearance w eGFR > 60 Random Glucose 124 H Calcium 8.9 Magnesium 2.1 Total Bilirubin 0.6 AST 15 ALT 24 Alkaline Phosphatase 86 Creatine Kinase 85 Troponin I < 0.02 Total Protein 7.2 Albumin 3.6 CBC, BMP 07/26/18 19:30 07/26/18 19:30 EKG: NSR, with incomplete RBBB, left anterior fasicular block, absent acute ALANIS , STD. Normal interval duration and axis. ASSESSMENT/PLAN: 78 yo M HTN, HLD, CAD s/p [place], prostate ca.( 7 years ago), prostastectomy who p/ w sudden onset of unremitting, non pleuritic, non exertional retrosternal and left sided chest pressure, lightheadedness, and SOB while eating. Vitals wnl, AF , A&Ox3. ACS/AL r/o. R/o PNA. Low risk PE based on Weils. Will consider pericarditis, pleural effusion, gastritis, enteritis, pancreatitis. No evidence of fludi/volume overload. Low suspicion acute CHF, or asthma/COPD. # Chest nirav R/O ACS * EKG * trop negative trend x3 * CXR No acute pathology , pending official read * playground monitor * BP monitor * admit to tele obs * Heart score 4-5 * echo in AM * Lipid panel * Nitroglycerin PRN for chest pain * cardiac consult DR Acevedo # HTN urgency * * drop BP 20-30 % goal 160-170 systolic for now * monitor BP * Hydralysine Po PRN # HTN # HLD # H/O AL # H/P prostate cancer #FEN # Proph # Dispo
[2018-07-26] MEDS ORDERED: NITROGLYCERIN 2% OINTMENT - 1GM PACKET TD ONE ×2 (21:50→22:06)
--- NOTE | 2018-07-26 21:50 | PN ---
Teaching Attending Note Name of Resident: Teofilo Sotomayor ATTENDING PHYSICIAN STATEMENT I saw and evaluated the patient. I reviewed the resident's note and discussed the case with the resident. I agree with the resident's findings and plan as documented. SUBJECTIVE: Patient is an 78 year old man with PMH of HTN, HLD, CAD s/p [place], prostate ca.( 7 years ago), prostatectomy who presents with retrosternal chest pain. Patient reports sitting down this evening and eating, when he experienced sudden onset of unremitting, non pleuritic, non exertional retrosternal and left sided chest pressure, and burning. Pain lasted for approximately 90 minutes, and resolved. Pain now improved. Also endorsed nausea without vomiting, and lightheadedness at time of symptom onset. Took two Tylenol tablets. Normal Echo 04/05/2017. Patient denies GARCIA, vision change, palpitations, cough, wheezing, orthopena, PND , leg swelling/pain, fever, chills, urinary complaints, abdominal pain, diarrhea , hematuria or constipation. OBJECTIVE: Alert Vital Signs Period Temp Pulse Resp BP Sys/Das Pulse Ox Last 24 Hr 97.9 F 75 18 188/86 97 HEENT: No Jaundice, eye redness or discharge, PERRLA, EOMI. Normocephalic, atraumatic. External ears are normal and hearing is grossly intact. No nasal discharge. Neck: Supple, nontender. No palpable adenopathy or thyromegaly. No JVD Chest: Good effort. Clear to auscultation and percussion. Heart: Regular. No S3, rub or murmur Abdomen: Not distended, soft, nontender and no HSM. No rebound or guarding. Normoactive bowel sounds. Ext: Peripheral pulses intact. No leg edema. Skin: Warm and dry. No petechiae, rash or ecchymosis. Neuro: Alert. Oriented x3. CN 2-12 grossly intact. Sensation grossly intact in all four extremities and DTR are symmetric. Home Medications Medication Instructions Recorded Atorvastatin Ca [Lipitor] 10 mg PO HS #30 tablet 04/01/14 Clopidogrel Bisulfate [Clopidogrel] 75 mg PO DAILY 08/03/16 Metoprolol Succinate [Toprol XL -] 100 mg PO DAILY #30 tab.sr.24h 02/07/18 Acetaminophen 2 tab PO BID PRN #100 capsule 06/21/18 Diclofenac Sodium [Voltaren] 2 gm TP TID PRN #90 gel..gram. 06/21/18 Amlodipine Besylate [Norvasc -] 10 mg PO DAILY #30 tablet 07/24/18 Baclofen 10 mg PO DAILY 30 Days #30 tablet 07/24/18 MDD 1 Docusate Sodium [Colace -] 100 mg PO TID #90 capsule 07/24/18 Lisinopril/Hydrochlorothiazide 1 each PO DAILY #30 tablet MDD 1 07/24/18 [Lisinopril-Hctz 20-12.5 mg Tab] Multivitamin [Multiple Vitamins] 1 each PO DAILY #30 tablet 07/24/18 Oxycodone HCl/Acetaminophen 1 tab PO BID #60 tablet MDD 2 07/24/18 [Percocet 5-325 mg Tablet] Polyethylene Glycol 3350 [Miralax 17 gm PO DAILY #1 btl 07/24/18 (For Bowel Prep) -] Abnormal Lab Results 07/26/18 07/26/18 19:30 19:30 Monocytes % 11.6 H Potassium 3.2 L Anion Gap 7 L BUN 20 H Random Glucose 124 H ASSESSMENT AND PLAN: 1. Chest pain - Hypokalemia likely due to HCTZ and poor intake. Check Mg and give oral KCL. 2. Obesity - Will provide patient all the necessary assistance, counseling and positive reinforcement to facilitate weight loss. Consult brain wave technician. 3. Uncontrolled hypertension - Restart outpatient antihypertensive drugs and revise regimen to ensure smooth [id number] good BP control. Nonpharmacologic measures to control hypertension like weight loss, salt restriction and exercise discussed. 4. DVT prophylaxis - Lovenox 40 mg SQ q 24 hours. 5. Advance directives - Full code
[2018-07-26] MEDS ORDERED: PANTOPRAZOLE SODIUM 40 MG VIAL IVPUSH ONE (22:01)
[2018-07-26] MEDS ORDERED: PANTOPRAZOLE SODIUM 40 MG VIAL ONE (22:06)
[2018-07-26] MEDS ORDERED: MAG HYDROX/AL HYDROX/SIMETH 30 ML UNIT-DOSE CUP PO ONE (23:51)
[2018-07-27] MEDS ORDERED: MAG HYDROX/AL HYDROX/SIMETH 30 ML UNIT-DOSE CUP ONE (00:04)
[2018-07-27] MEDS ORDERED: SUCRALFATE 1 GM TABLET (FP) ONE (00:05)
[2018-07-27] MEDS ORDERED: SUCRALFATE 1 GM TABLET (FP) PO ONE ×2 (00:10→23:51)
[2018-07-27] MEDS ORDERED: oxyCODONE HCL 5 MG TABLET PO PRN (01:43)
[2018-07-27] MEDS ORDERED: ACETAMINOPHEN 325 MG TABLET (FP) PO PRN (01:43)
[2018-07-27 01:54] VITALS: BMI 30.1
[2018-07-27] MEDS: DOCUSATE SODIUM 100 MG CAPSULE (FP) PO SCH ×2 (06:18→16:44)
[2018-07-27 06:42] LABS: BASO % 0.9 % (0-2.0); HEMATOCRIT 45.5 % (35.4-49); LYMPH % 27.6 % (8-40); MCH 32.1 pg (25.7-33.7); MCHC 35.1 g/dl (32.0-35.9); MEAN CELL VOLUME 91.3 fl (80-96); MEAN PLT VOLUME 9.1 fl (7.5-11.1); MONO % 9.5 % (3.8-10.2); PLATELET COUNT 178 K/MM3 (134-434); RBC 4.99 M/mm3 (4.00-5.60); RDW 13.5 % (11.9-15.9); WHITE BLOOD COUNT 6.5 K/mm3 (4.0-10.0)
[2018-07-27 07:24] LABS: ALBUMIN 3.5 g/dl (3.4-5.0); ALK PHOS 78 U/L (45-117); ANION GAP 4 MMOL/L (8-16); BLOOD UREA NITROGEN 18 mg/dL (7-18); CALCIUM 8.6 mg/dL (8.5-10.1); CHLORIDE 101 mmol/L (98-107); CHOLESTEROL 87 mg/dL (50-200); CO2 33 mmol/L (21-32); CREATININE 0.8 mg/dL (0.55-1.3); GLUCOSE,RANDOM 99 mg/dL (74-106); HDL CHOLESTEROL 40 mg/dL (40-60); MAGNESIUM 2.4 mg/dL (1.8-2.4); POTASSIUM 3.2 mmol/L (3.5-5.1); SGOT/AST 16 U/L (15-37); SGPT/ALT 26 U/L (13-61); SODIUM 138 mmol/L (136-145); TOT PROT 7.1 g/dl (6.4-8.2); TRIGLYCERIDES 91 mg/dL (0-150)
--- NOTE | 2018-07-27 08:30 | PN ---
Progress Note (short form) - Note Progress Note: Coverage for Dr. Mitchell Angulo Chief Complaint: Events noted, notes reviewed, chest pain syndrome/resolved, denied dyspnea History of Present Illness: Seen and examined on telemetry. Full consult dictated - Current Medication List Current Medications: Current Medications Acetaminophen (Tylenol -) 325 mg PO Q12H PRN PRN Reason: PAIN LEVEL 6-10 Last Admin: 07/27/18 06:18 Dose: 325 mg Amlodipine Besylate (Norvasc -) 10 mg PO DAILY [facility] Atorvastatin Calcium (Lipitor -) 10 mg PO HS [facility] Baclofen (Lioresal -) 10 mg PO DAILY [facility] Clopidogrel Bisulfate (Plavix -) 75 mg PO DAILY [facility] Docusate Sodium (Colace -) 100 mg PO TID [facility] Last Admin: 07/27/18 06:18 Dose: 100 mg Hydrochlorothiazide (Hctz -) 12.5 mg PO DAILY [facility] Lisinopril (Prinivil) 20 mg PO DAILY [facility] Metoprolol Succinate (Toprol Xl -) 100 mg PO DAILY [facility] Multivitamins/Minerals/Vitamin C (Tab-A-Vit -) 1 tab PO DAILY [facility] Oxycodone HCl (Roxicodone -) 5 mg PO Q12H PRN PRN Reason: PAIN LEVEL 6-10 Last Admin: 07/27/18 06:17 Dose: 5 mg Sucralfate (Carafate Oral Suspension -) 1 gm PO QID [facility] Review of Systems Cardiovascular: As noted above Respiratory: denies: denies: Cough or Sputum Production Gastrointestinal: denies: Nausea, Vomiting, Diarrhea, Constipation or Abdominal Discomfort Musculoskeletal: No Symptoms Reported Endocrine: No Symptoms Reported - Objective Vital Signs: Last Vital Signs Temp Pulse Resp BP Pulse Ox 98.1 F 62 18 146/84 96 07/27/18 06:00 07/27/18 06:00 07/27/18 06:00 07/27/18 06:00 07/27/18 01:35 Intake & Output 07/24/18 07/25/18 07/26/18 07/27/18 23:59 23:59 23:59 23:59 Intake Total 360 Balance 360 Weight 219 lb 215 lb 12.8 oz Constitutional: No Distress Neck: Supple Negative JVD No Bruit Cardiovascular: S1 S2 Regular Rate Rhythm Respiratory: Clear to A&P Bilaterally Gastrointestinal: Soft Benign Normal Bowel Sounds Ext: No Edema Labs: Troponin, BNP 07/26/18 07/26/18 07/27/18 19:30 22:50 06:00 Troponin I < 0.02 < 0.02 < 0.02 CBC, BMP 07/27/18 06:00 07/27/18 06:00 Hepatic Panel Total Bilirubin 1.0 mg/dL (0.2-1) 07/27/18 06:00 AST 16 U/L (15-37) 07/27/18 06:00 ALT 26 U/L (13-61) 07/27/18 06:00 Alkaline Phosphatase 78 U/L (45-117) 07/27/18 06:00 Albumin 3.5 g/dl (3.4-5.0) 07/27/18 06:00 INR, PTT INR 1.06 (0.83-1.09) 07/26/18 19:30 Assessment/Plan ASSESSMENT: 1. Chest pain syndrome atypical for angina pectoris in a patient with known CAD post [place] angina pectoris 2. Diastolic LV dysfunction with clinical class 0 NYHA classification LV failure 3. HTN/HCVD 4. Hyperlipidemia 5. History of GERD 6. 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 Hypokalemia PLAN: 1. Continue Toprol XL 2. Continue Norvasc 3. Continue Lisinopril and titrate as needed 4. Continue HCTZ 5. Continue Plavix 6. Continue Lipitor 7. Hypokalemia correction 8. Patient is symptom free with no evidence of ACS, recommend additional outpatient evaluation including echocardiography and MPI study, discussed in detail with the patient Jamaal Gomez MD
[2018-07-27] MEDS ORDERED: CLOPIDOGREL BISULFATE 75 MG TABLET (FP) PO SCH (10:00)
[2018-07-27] MEDS ORDERED: LISINOPRIL 20 MG TABLET (FP) PO SCH ×2 (10:00→10:24)
[2018-07-27] MEDS ORDERED: BACLOFEN 10 MG TABLET (FP) PO SCH (10:00)
[2018-07-27] MEDS ORDERED: PATIENT'S OWN MEDICATION (NON-FORMULARY) (Lisinopril/Hydrochlorothiazide [Lisinopril-Hctz PO SCH (10:00)
[2018-07-27] MEDS ORDERED: HYDROCHLOROTHIAZIDE 12.5 MG CAPSULE (FP) PO SCH (10:00)
[2018-07-27] MEDS ORDERED: amLODIPine BESYLATE 10 MG TABLET (FP) PO SCH (10:00)
[2018-07-27] MEDS ORDERED: MULTIVITAMINS (DAILY MVI) TABLET (FP) PO SCH (10:00)
[2018-07-27] MEDS ORDERED: POTASSIUM CHLORIDE TABS 20 MEQ TABLET.ER (FP) PO ONE (10:23)
[2018-07-27] MEDS ORDERED: PT OWN MED DRAWER 7, Y5N ONE (10:58)
[2018-07-27] MEDS: SUCRALFATE 1 GM/10 ML UNIT DOSE CUPS PO SCH ×2 (11:01→16:44)
[2018-07-27 11:24] VITALS: BP 133/77; PULSE 65; TEMP 98
--- NOTE | 2018-07-27 16:08 | HP ---
Admitting History and Physical - Admission History of Present Illness: 78 yo M HTN, HLD, CAD s/p [place], prostate ca.( 7 years ago), prostastectomy who p/ w chest pain. chest pain retrosternal / burning in nature / non radiating / no change with respiration /no diaphoresis and no N/V or GI upset. Patient reports sitting down to dinner and eating fish, CP began after diner, localized across anterior chest and having multiple episodes of "gas" / reflux, following the meal. CP / discomfort lasted >1/2 hour -at which point patient decided to go to ER - He called a cab for transfer to ER. During ER stay continued to have chest discomfort -- per staff totalling over 90 min. Several hours later given NTG and PPi which appears to have resolved the pain Normal Echo 04/05/2017 No home O2 requirements. Never smoked Last ETOH intake >18 yrs ago History Source: Patient Limitations to Obtaining History: No Limitations - Past Medical History Cardiovascular: Yes: CAD, HTN, Hyperlipdemia, [place]. No: AFIB, CHF Heme/Onc: Yes: Other (prostate ca) Musculoskeletal: Yes: Chronic low back pain, Osteoarthritis, Other (right hip pain) - Past Surgical History Past Surgical History: Yes: Hernia Repair, Prostatectomy - Smoking History Smoking history: Never smoked Have you smoked in the past 12 months: No Aproximately how many cigarettes per day: 0 - Alcohol/Substance Use Hx Alcohol Use: No (last drink >18 yrs ago) History of Substance Use: reports: None - Social History Usual Living Arrangement: Yes: With Child Occupation: retired History of Recent Travel: No Home Medications - Allergies Allergies/Adverse Reactions: Allergies Allergy/AdvReac Type Severity Reaction Status Date / Time levofloxacin [Levofloxacin] Allergy Mild Itching Verified 07/26/18 19:25 - Home Medications Home Medications: Ambulatory Orders Atorvastatin Ca [Lipitor] 10 mg PO HS #30 tablet 04/01/14 Clopidogrel Bisulfate [Clopidogrel] 75 mg PO DAILY 08/03/16 Metoprolol Succinate [Toprol XL -] 100 mg PO DAILY #30 tab.sr.24h 02/07/18 Acetaminophen 2 tab PO BID PRN #100 capsule 06/21/18 Diclofenac Sodium [Voltaren] 2 gm TP TID PRN #90 gel..gram. 06/21/18 Amlodipine Besylate [Norvasc -] 10 mg PO DAILY #30 tablet 07/24/18 Baclofen 10 mg PO DAILY 30 Days #30 tablet MDD 1 07/24/18 Docusate Sodium [Colace -] 100 mg PO TID #90 capsule 07/24/18 Lisinopril/Hydrochlorothiazide [Lisinopril-Hctz 20-12.5 mg Tab] 1 each PO DAILY #30 tablet MDD 1 07/24/18 Multivitamin [Multiple Vitamins] 1 each PO DAILY #30 tablet 07/24/18 Oxycodone HCl/Acetaminophen [Percocet 5-325 mg Tablet] 1 tab PO BID #60 tablet MDD 2 07/24/18 Polyethylene Glycol 3350 [Miralax (For Bowel Prep) -] 17 gm PO DAILY #1 btl Family Disease History - Family Disease History Family Disease History: Diabetes: Sister (two - one living, one DM), [place] : Mother (), Other: Father (did not know him), Brother (two - in [place] - chronic pain), Sister, Son (2 adult sons), Daughter (one adult - in [place]) Review of Systems - Review of Systems Constitutional: denies: Chills, Diaphoresis, Fever, Night Sweats Eyes: reports: No Symptoms HENT: reports: No Symptoms Neck: reports: No Symptoms Cardiovascular: reports: Chest Pain. denies: Edema, Palpitations, Shortness of Breath Respiratory: denies: Cough, Wheezing Gastrointestinal: reports: Indigestion Genitourinary: reports: No Symptoms Breasts: reports: No Symptoms Reported Musculoskeletal: reports: Back Pain, Joint Pain Integumentary: reports: No Symptoms Neurological: reports: Pre-Existing Deficit Endocrine: reports: No Symptoms Hematology/Lymphatic: reports: No Symptoms Psychiatric: reports: No Symptoms Physical Examination Vital Signs: Vital Signs Temperature 98 F 07/27/18 10:00 Pulse Rate 65 07/27/18 10:00 Respiratory Rate 18 07/27/18 10:00 Blood Pressure 133/77 07/27/18 10:00 O2 Sat by Pulse Oximetry (%) 96 07/27/18 11:00 Constitutional: Yes: Well Nourished, No Distress, Calm Eyes: Yes: Conjunctiva Clear, EOM Intact HENT: Yes: Atraumatic, Normocephalic Neck: Yes: WNL, Supple, Trachea Midline Cardiovascular: Yes: Regular Rate and Rhythm Respiratory: Yes: Regular, CTA Bilaterally Gastrointestinal: Yes: Normal Bowel Sounds, Soft, Abdomen, Obese ...Rectal Exam: Yes: WNL Renal/: Yes: WNL Breast(s): Yes: WNL Musculoskeletal: Yes: Back Pain, Other (hip pain) Extremities: Yes: WNL. No: Deformity Edema: No Peripheral Pulses WNL: Yes Integumentary: Yes: WNL Wound/Incision: Yes: Clean/Dry Neurological: Yes: WNL, Alert, Oriented ...Motor Strength: WNL Psychiatric: Yes: WNL, Alert, Oriented Labs: CBC, BMP 07/27/18 06:00 07/27/18 06:00 Problem List - Problems (1) Atypical chest pain Assessment/Plan: trend TNI and EKG pain control continue current medications review records 2016 echo / stress no significant finding Cardiology consult in am. Code(s): R07.89 - OTHER CHEST PAIN (2) Chest pain syndrome Assessment/Plan: r/o GI origin of chest pain PPi Carafate Code(s): R07.9 - CHEST PAIN, UNSPECIFIED (3) Chronic pain Code(s): G89.29 - OTHER CHRONIC PAIN (4) Hyperlipidemia Assessment/Plan: continue current medications Code(s): E78.5 - HYPERLIPIDEMIA, UNSPECIFIED Qualifiers: Hyperlipidemia type: pure hypercholesterolemia Qualified Code(s): E78.00 - Pure hypercholesterolemia, unspecified; E78.0 - Pure hypercholesterolemia (5) Chronic left hip pain Code(s): M25.552 - PAIN IN LEFT HIP; G89.29 - OTHER CHRONIC PAIN (6) Chronic neck and back pain Code(s): M54.2 - CERVICALGIA; M54.9 - DORSALGIA, UNSPECIFIED
--- NOTE | 2018-07-27 16:39 | DS ---
Physical Examination Vital Signs: Vital Signs Temperature 98 F 07/27/18 10:00 Pulse Rate 65 07/27/18 10:00 Respiratory Rate 18 07/27/18 10:00 Blood Pressure 133/77 07/27/18 10:00 O2 Sat by Pulse Oximetry (%) 96 07/27/18 11:00 Findings/Remarks: 78 yo M HTN, HLD, CAD s/p [place], prostate ca.( 7 years ago), prostastectomy who p/ w chest pain. chest pain retrosternal / burning in nature / non radiating / no change with respiration /no diaphoresis and no N/V or GI upset. Patient reports sitting down to dinner and eating fish, CP began after diner, localized across anterior chest and having multiple episodes of "gas" / reflux, following the meal. CP / discomfort lasted >1/2 hour -at which point patient decided to go to ER - He called a cab for transfer to ER. During ER stay continued to have chest discomfort -- per staff totalling over 90 min. Several hours later given NTG and PPi which appears to have resolved. Patient has continued pain free. TNI X3 negative / no EKG changes Evaluated by Cardiology and cleared for d/c Case discussed with Dr najera - much appreciated Constitutional: Yes: Well Nourished, No Distress, Calm, Obese Eyes: Yes: WNL, Conjunctiva Clear HENT: Yes: Atraumatic, Normocephalic Neck: Yes: Supple, Trachea Midline, Other (left sumadibular mass / firm smooth non tender) Cardiovascular: Yes: WNL, Regular Rate and Rhythm Respiratory: Yes: Regular, CTA Bilaterally Gastrointestinal: Yes: Normal Bowel Sounds, Soft, Abdomen, Obese ...Rectal Exam: Yes: Deferred Renal/: Yes: WNL Breast(s): Yes: WNL Musculoskeletal: Yes: Back Pain Extremities: Yes: WNL Edema: No Peripheral Pulses WNL: Yes Integumentary: Yes: WNL Neurological: Yes: WNL, Alert, Oriented Psychiatric: Yes: WNL, Alert, Oriented Labs: CBC, BMP 07/27/18 06:00 07/27/18 06:00 Discharge Summary Reason For Visit: ATYPICAL CHEST PAIN Current Active Problems Chest pain (Acute) Condition: Stable - Instructions Disposition: HOME - Home Medications Comprehensive Discharge Medication List: Ambulatory Orders Atorvastatin Ca [Lipitor] 10 mg PO HS #30 tablet 04/01/14 Clopidogrel Bisulfate [Clopidogrel] 75 mg PO DAILY 08/03/16 Metoprolol Succinate [Toprol XL -] 100 mg PO DAILY #30 tab.sr.24h 02/07/18 Acetaminophen 2 tab PO BID PRN #100 capsule 06/21/18 Amlodipine Besylate [Norvasc -] 10 mg PO DAILY #30 tablet 07/24/18 Baclofen 10 mg PO DAILY 30 Days #30 tablet MDD 1 07/24/18 Docusate Sodium [Colace -] 100 mg PO TID #90 capsule 07/24/18 Lisinopril/Hydrochlorothiazide [Lisinopril-Hctz 20-12.5 mg Tab] 1 each PO DAILY #30 tablet MDD 1 07/24/18 Multivitamin [Multiple Vitamins] 1 each PO DAILY #30 tablet 07/24/18 Oxycodone HCl/Acetaminophen [Percocet 5-325 mg Tablet] 1 tab PO BID #60 tablet MDD 2 07/24/18 Polyethylene Glycol 3350 [Miralax (For Bowel Prep) -] 17 gm PO DAILY #1 btl d/c declofenac /NSAIDs due to possible GI distress Patient given appointment at office sunday at 4 pm
[2018-07-27] MEDS ORDERED: ATORVASTATIN CA 10 MG TABLET (FP) PO SCH (22:00)
--- NOTE | 2018-07-29 08:53 | CONS ---
DATE OF CONSULTATION: DATE OF DICTATION: 07/27/2018 CONSULTATION REQUESTED BY: Alena Perry MD, coverage for Dr. Edmund Angulo. HISTORY: An 78-year-old male of descent with known history of coronary artery disease, abnormal myocardial perfusion imaging study April 04, 2017; angina pectoris, diastolic left ventricular dysfunction with clinical class 0 [place] [employer] classification left ventricular failure, hypertensive cardiovascular disease, hypercholesterolemia, gastroesophageal reflux disease, chronic pain syndrome related to degenerative lumbosacral disk disease, who presented to [facility] with recurrent episodes of retrosternal chest discomfort described as heaviness. Symptoms were not exacerbated with physical exertion and subsequently subsided after belching. Patient denied any associated nausea or vomiting. Patient denied any associated diaphoresis. Patient currently is symptom free. Patient reports dyspnea with [id number] physical exertion. Patient denies any orthopnea, paroxysmal nocturnal dyspnea, or peripheral edema. Patient denies any palpitation, dizziness, lightheadedness, or syncope. PAST MEDICAL HISTORY: Coronary artery disease, abnormal myocardial perfusion imaging study, angina pectoris, diastolic left ventricular dysfunction with clinical class 0 [place] [employer] classification left ventricular failure, hypertensive cardiovascular disease, hypercholesterolemia, gastroesophageal reflux disease, chronic low back pain syndrome related to degenerative lumbosacral disk disease. PAST SURGICAL HISTORY: Bilateral inguinal hernia repair, prostate carcinoma post resection, bilateral knee replacement surgery. SOCIAL HISTORY: Nonsmoker. FAMILY HISTORY: Positive coronary artery disease. ALLERGIES: LEVOFLOXACIN. MEDICATIONS: Medical therapy currently includes acetaminophen 325 mg every 12 hours as needed, Norvasc 10 mg once a day, Lipitor 10 mg once a day, baclofen 10 mg once a day, Plavix 75 mg once a day, Colace 100 mg 3 times a day, hydrochlorothiazide 12.5 mg once a day, lisinopril 20 mg once a day, Toprol-XL 100 mg once a day, multivitamin 1 tablet once a day, oxycodone 5 mg every 12 hours as needed, and Carafate 1 g 4 times a day. REVIEW OF SYSTEMS: Head and Neck: Denies headache, photophobia, blurring of vision. Respiratory: No cough or sputum production. Cardiovascular: As noted above. Gastrointestinal: Denies nausea, vomiting, diarrhea, abdominal discomfort. Genitourinary: No symptoms reported. Musculoskeletal: Persistent low back discomfort. PHYSICAL EXAMINATION: Vital Signs: Blood pressure 146/84 mmHg. Pulse rate is 62 beats per minute. Head and Neck: Pupils equal, reactive to light and accommodation. Extraocular muscles are intact. Anicteric sclera. Negative JVD. No bruit appreciated. Chest: Clear to auscultation and percussion. Cardiovascular: S1, S2 regular. No murmur, clicks, or gallops. Abdomen: Soft, benign. Normoactive bowel sounds. Extremities: Negative edema. Intact distal pulses. No calf tenderness. DIAGNOSTIC STUDIES: Electrocardiogram revealed sinus rhythm with no ST segment or T-wave abnormality. Left axis deviation, poor R wave progression. CBC revealed white cell count 6.5, hemoglobin 16.0, platelet count 178. Basic metabolic profile revealed a sodium 138, potassium 3.2, BUN of 18, creatinine 0.8, glucose 99. ASSESSMENT: 1. Chest pain syndrome, atypical for angina pectoris in a patient with known history of coronary artery disease post myocardial infarction, angina pectoris. 2. Diastolic left ventricular dysfunction with clinical class 0 [place] [employer] classification left ventricular failure. 3. Hypertensive cardiovascular disease. 4. Hypercholesterolemia. 5. History of gastroesophageal reflux disease. 6. History of degenerative lumbosacral disk disease with chronic low back pain syndrome. 7. Hypokalemia. RECOMMENDATIONS: 1. Continuation of Toprol-XL therapy. 2. Continuation of Norvasc therapy. 3. Continuation of lisinopril therapy and titration of dosage as needed. 4. Continuation of hydrochlorothiazide therapy. 5. Continuation of Plavix therapy. 6. Continuation of Lipitor therapy. 7. Patient is symptom-free and with no evidence of acute coronary syndrome. Recommend additional outpatient evaluation including echocardiography and myocardial perfusion imaging study. Discussed in detail with the patient. Thank you for the kind referral. LEILA BEAR M.D. [id number]
--- NOTE | 2018-07-29 11:01 | EKG ---
Test Reason : Blood Pressure : / mmHG Vent. Rate : 075 BPM Atrial Rate : 075 BPM P-R Int : 186 ms QRS Dur : 112 ms QT Int : 414 ms P-R-T Axes : 056 -72 036 degrees QTc Int : 462 ms NORMAL SINUS RHYTHM INCOMPLETE RIGHT BUNDLE BRANCH BLOCK LEFT ANTERIOR FASCICULAR BLOCK ABNORMAL ECG WHEN COMPARED WITH ECG OF 05-APR-2017 13:26, PREMATURE VENTRICULAR COMPLEXES ARE NO LONGER PRESENT Confirmed by QUINN ALMEIDA, XIANG ([id number]) on 07/29/2018 11:00:42 AM Referred By: Confirmed By:XIANG BALL MD
--- NOTE | 2018-07-30 13:54 | EKG ---
Test Reason : Blood Pressure : / mmHG Vent. Rate : 070 BPM Atrial Rate : 070 BPM P-R Int : 172 ms QRS Dur : 112 ms QT Int : 440 ms P-R-T Axes : -28 -69 -18 degrees QTc Int : 475 ms NORMAL SINUS RHYTHM LEFT AXIS DEVIATION INCOMPLETE RIGHT BUNDLE BRANCH BLOCK NONSPECIFIC T WAVE ABNORMALITY ABNORMAL ECG WHEN COMPARED WITH ECG OF 26-JUL-2018 19:09, INVERTED T WAVES HAVE REPLACED NONSPECIFIC T WAVE ABNORMALITY IN INFERIOR LEADS NONSPECIFIC T WAVE ABNORMALITY, WORSE IN LATERAL LEADS Confirmed by MD Ellis, Neil ([id number]) on 07/30/2018 1:54:37 PM Referred By: Confirmed By:Neil Corral MD
--- NOTE | 2018-07-30 13:58 | EKG ---
Test Reason : Blood Pressure : / mmHG Vent. Rate : 060 BPM Atrial Rate : 060 BPM P-R Int : 190 ms QRS Dur : 118 ms QT Int : 430 ms P-R-T Axes : -14 -66 -30 degrees QTc Int : 430 ms NORMAL SINUS RHYTHM LEFT ANTERIOR FASCICULAR BLOCK NONSPECIFIC T WAVE ABNORMALITY ABNORMAL ECG WHEN COMPARED WITH ECG OF 26-JUL-2018 19:09, INCOMPLETE RIGHT BUNDLE BRANCH BLOCK IS NO LONGER PRESENT Confirmed by MD Ellis, Neil ([id number]) on 07/30/2018 1:58:39 PM Referred By: Confirmed By:Neil Corral MD
== END 2018-07-27 17:47 | disposition home or self-care (01) | DRG 313 ==
LOC: JER 19:03 → JERBED 20:11 → OBSVTOIN 07-27 01:02 → J4S 07-27 01:25
PROVIDERS: ADMIT Family Medicine; ATTEND Family Medicine
DX: R07.89 Other chest pain (principal); I25.119 Atherosclerotic heart disease of native coronary artery with unspecified angina pectoris; I11.9 Hypertensive heart disease without heart failure; E78.5 Hyperlipidemia, unspecified; K21.9 Gastro-esophageal reflux disease without esophagitis; E87.6 Hypokalemia; G89.29 Other chronic pain; M25.552 Pain in left hip; M54.2 Cervicalgia; M54.9 Dorsalgia, unspecified
CPT/HCPCS: 36415; 71046-TC-FY; 80053; 80061; 82550; 82553; 83036; 83721; 83735; 84484; 85025; 85610; 93005; 93010; 99283-25; G0378; J0475

== ENCOUNTER 2018-09-02 10:23 | Inpatient (IN) | payer OTHER ==
--- NOTE | 2018-09-02 11:24 | PDOC ---
History of Present Illness - General Chief Complaint: Respiratory Stated Complaint: PAIN Time Seen by Provider: 09/02/18 11:23 History Source: Patient Exam Limitations: No Limitations - History of Present Illness Initial Comments: Pt is an 78 yo M, with PMH of chronic pain, CAD (s/p CT, normal EF, on Plavix), anxiety, HTN, HLD, and prostate CA (s/p prostatectomy), who is presenting with complaints of worsening productive cough x2 weeks with associated subjective fevers/chills. Pt states the cough is productive of yellow sputum, and he has no sputum at baseline. He awoke this AM with chest "tightness" and "a sound coming from his chest like wheezing". Pt states he has had decreased walking tolerance, but this is due to his worsening hip/back pain and not his breathing. Pt denies any headache, vision changes, syncope, chest pain, palpitations, SOB, nausea/vomiting, abdominal pain, urinary symptoms, diarrhea/ constipation, or leg swelling. Social: Pt denies any cigarette, alcohol, or drug use. Pt denies any recent travel or sick contacts. Surgical: prostatectomy. Family: no relevant history. 09/02/18 13:15 Past History - Travel Traveled outside of the country in the last 30 days: No Close contact w/someone who was outside of country & ill: No - Past Medical History Allergies/Adverse Reactions: Allergies Allergy/AdvReac Type Severity Reaction Status Date / Time levofloxacin [Levofloxacin] Allergy Mild Itching Verified 09/02/18 10:44 Home Medications: Ambulatory Orders Atorvastatin Ca [Lipitor] 10 mg PO HS #30 tablet 04/01/14 Clopidogrel Bisulfate [Clopidogrel] 75 mg PO DAILY 08/03/16 Metoprolol Succinate [Toprol XL -] 100 mg PO DAILY #30 tab.sr.24h 02/07/18 Amlodipine Besylate [Norvasc -] 10 mg PO DAILY #30 tablet 07/24/18 Baclofen 10 mg PO DAILY 30 Days #30 tablet MDD 1 07/24/18 Docusate Sodium [Colace -] 100 mg PO TID #90 capsule 07/24/18 Lisinopril/Hydrochlorothiazide [Lisinopril-Hctz 20-12.5 mg Tab] 1 each PO DAILY #30 tablet MDD 1 07/24/18 Multivitamin [Multiple Vitamins] 1 each PO DAILY #30 tablet 07/24/18 Polyethylene Glycol 3350 [Miralax 255 gm Btl -] 17 gm PO DAILY #1 btl 07/24/18 Acetaminophen [Tylenol .Regular Strength -] 325 mg PO Q12H PRN tablet 07/27/18 Diclofenac Sodium 2 gm TP TID PRN #1 tube 08/20/18 Oxycodone HCl/Acetaminophen [Endocet 5-325 Tablet] 1 each PO TID PRN #90 tablet MDD 3 08/20/18 Anemia: No Asthma: No Cancer: Yes (PROSTATE CA) Cardiac Disorders: Yes (CT) CVA: No COPD: No CHF: No DVT: No Dementia: No Diabetes: Yes GI Disorders: No Disorders: No HTN: Yes Hypercholesterolemia: Yes Liver Disease: No Seizures: No Thyroid Disease: No - Surgical History Abdominal Surgery: Yes (HERNIA REPAIR) Orthopedic Surgery: Yes (knee replacement) - Immunization History Immunization Up to Date: Yes - Suicide/Smoking/Psychosocial Hx Smoking Status: No Smoking History: Unknown if ever smoked Have you smoked in the past 12 months: No Number of Cigarettes Smoked Daily: 0 Hx Alcohol Use: No (last drink >18 yrs ago) Drug/Substance Use Hx: No Substance Use Type: None Hx Substance Use Treatment: No Review of Systems - Review of Systems Able to Perform ROS?: Yes Is the patient limited Vietnamese proficient: No Constitutional: Yes: Chills, Fever, Loss of Appetite, Malaise, Weight Stable. No: Diaphoresis, Night Sweats, Weakness HEENTM: No: Blurred Vision, Recent change in vision, Double Vision, Nose Pain, Nose Congestion, Throat Pain, Throat Swelling, Difficulty Swallowing Respiratory: Yes: See HPI, Cough, Wheezing, Productive cough. No: Orthopnea, Shortness of Breath, Hemoptysis Cardiac (ROS): Yes: Chest Tightness. No: Chest Pain, Edema, Irregular Heart Rate, Lightheadedness, Palpitations, Syncope ABD/GI: Yes: Poor Appetite, Poor Fluid Intake. No: Abdominal Distended, Constipated, Diarrhea, Nausea, Vomiting : No: Burning, Dysuria, Pain, Urgency Musculoskeletal: No: Back Pain, Joint Pain, Muscle Pain Integumentary: No: Rash Neurological: No: Headache, Numbness, Weakness, Unsteady Gait (pt walks chronically with cane 2/2 back and hip pain), Dizziness Psychiatric: No: Sleep Pattern Change, Change in Appetite Endocrine: No: Increased Urine, Change in Weight Hematologic/Lymphatic: No: Anemia, Blood Clots, Easy Bleeding, Easy Bruising All Other Systems: Reviewed and Negative *Physical Exam - Vital Signs Last Vital Signs Temp Pulse Resp BP Pulse Ox 98.3 F 87 22 H 141/83 99 09/02/18 10:47 09/02/18 10:47 09/02/18 10:47 09/02/18 10:47 09/02/18 10:47 - Physical Exam Comments: BP 141/83, pt tachypnic at 22 breaths/min, pt afebrile. Pt appears uncomfortable , obese body habitus. PE showed pt alert and oriented. 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 Head normocephalic, atraumatic. Eyes PERRLA, EOMI. Oropharynx without erythema or exudates, no LAD b/l. No nasal congestion, hearing intact. Clear heart sounds, S1/S2, no JVD, b/l pedal edema, or heart murmur. Diminished breath sounds, worse in posterior bases with poor inspiratory effort. No respiratory distress, wheezes, or crackles. No abdominal or CVA tenderness to palpation, no rebound, no guarding. Abdomen soft, non-distended, and with normoactive bowel sounds. Skin without jaundice or rash. 09/02/18 13:11 ED Treatment Course - LABORATORY CBC & Chemistry Diagram: 09/02/18 12:09 09/02/18 12:09 Medical Decision Making - Medical Decision Making Pt was seen at bedside, also will be seen by attending Dr. Escoto. Pt presenting with complaints of worsening productive cough x2 weeks with associated subjective fevers/chills. Pt states the cough is productive of yellow sputum, and he has no sputum at baseline. He awoke this AM with chest "tightness" and "a sound coming from his chest like wheezing". Pt states he has had decreased walking tolerance, but this is due to his worsening hip/back pain and not his breathing. Pt denies any headache, vision changes, syncope, chest pain, palpitations, SOB, nausea/vomiting, abdominal pain, urinary symptoms, diarrhea/constipation, or leg swelling. Considering viral URI vs pneumonia vs influenza vs ACS. Less likely HF, as pts last echo and stress tests have been normal, no JVD or b/l pitting edema. Pt has also had subjective chills/fever with productive cough, making infectious etiology more likely. Pt also has diminished breath sounds, worse in the R posterior bases with poor inspiratory effort. Ordered work-up including CBC, CMP, troponin, chest x-ray. Provided albuterol nebulizer for improvement of chest tightness. Will continue to reassess pt and monitor for symptomatic improvement. ECG: NSR, intervals WNL (HR 75, SD 194, QRS 114, QTc 469). No TWIs or significant ST segment changes. LAD (on prior ECG). No significant changes from prior ECG (07/27/2018). 09/02/18 13:05 CBC and CMP generally WNL. Influenza negative Troponin <.02, with no ECG changes from prior. Chest x-ray showed increasing consolidation at the bases. Because pt has been recently hospitalized, will cover for pneumonia with 1.5 g Vanc, 3.375 g zosyn, and [address] Perry for admission. 09/02/18 13:08 Dr. Perry paged x2 for admission. 09/02/18 13:[address] Perry service. Breathing improved after albuterol treatment. Pt stable and lying comfortably. 09/02/18 14:02 *DC/Admit/Observation/Transfer Diagnosis at time of Disposition: Pneumonia Qualifiers: Pneumonia type: due to unspecified organism Laterality: right Lung location: lower lobe of lung Qualified Code(s): J18.1 - Lobar pneumonia, unspecified organism - Discharge Dispostion Condition at time of disposition: Stable Decision to Admit order: Yes - Referrals Referrals: Alena Perry MD [Primary Care Provider] - - Patient Instructions - Post Discharge Activity
[2018-09-02] MEDS ORDERED: ALBUTEROL SO4 0.083% IH SOL 2.5 MG/3 ML VIAL.NEB. NEB ONE ×2 (11:47→12:05)
[2018-09-02 12:24] LABS: BASO % 0.8 % (0-2.0); EOS % 1.5 % (0-4.5); HEMATOCRIT 43.5 % (35.4-49); HEMOGLOBIN 15.2 GM/dL (11.7-16.9); LYMPH % 18.9 % (8-40); MCH 31.8 pg (25.7-33.7); MCHC 34.9 g/dl (32.0-35.9); MEAN CELL VOLUME 91.1 fl (80-96); MEAN PLT VOLUME 9.2 fl (7.5-11.1); MONO % 9.3 % (3.8-10.2); NEUT % 69.5 % (42.8-82.8); PLATELET COUNT 190 K/MM3 (134-434); RBC 4.78 M/mm3 (4.00-5.60); RDW 13.8 % (11.9-15.9)
[2018-09-02] MEDS ORDERED: AZITHROMYCIN IVPB 500 MG in DEXTROSE 5%-WATER - 250 ML IVPB ONE (12:52)
[2018-09-02] MEDS ORDERED: VANCOMYCIN 1,500 MG in DEXTROSE 5%-WATER - 250 ML IVPB ONE (12:52)
[2018-09-02] MEDS ORDERED: PIPERACILLIN/TAZOB 3.375 GM 3.375 GM in DEXTROSE 5%-WATER - 50 ML IVPB ONE (12:52)
[2018-09-02 12:56] LABS: ALBUMIN 3.4 g/dl (3.4-5.0); ALK PHOS 59 U/L (45-117); ANION GAP 7 MMOL/L (8-16); BILIRUBIN,TOTAL 0.7 mg/dL (0.2-1); BLOOD UREA NITROGEN 16 mg/dL (7-18); CALCIUM 8.8 mg/dL (8.5-10.1); CHLORIDE 102 mmol/L (98-107); CO2 30 mmol/L (21-32); CREATININE 0.7 mg/dL (0.55-1.3); GLUCOSE,RANDOM 117 mg/dL (74-106); POTASSIUM 3.4 mmol/L (3.5-5.1); SGOT/AST 19 U/L (15-37); SGPT/ALT 21 U/L (13-61); SODIUM 139 mmol/L (136-145); TOT PROT 6.9 g/dl (6.4-8.2)
[2018-09-02] MEDS ORDERED: AZITHROMYCIN IVPB 500 MG/250 ML BAG IVPB ONE (12:57)
[2018-09-02] MEDS ORDERED: PIPERACILLIN/TAZOB 3.375 GM 3.375 GM/50 ML BAG IVPB ONE (12:58)
--- NOTE | 2018-09-02 13:13 | PDOC ---
Attending Attestation - Resident Resident Name: Karen Jerry - ED Attending Attestation I have performed the following: I have examined & evaluated the patient, The case was reviewed & discussed with the resident, I agree w/resident's findings & plan, Exceptions are as noted - HPI HPI: 09/02/18 13:09 agree with resident hpi - Physicial Exam PE: 09/02/18 13:09 agree with resident exam - Medical Decision Making 09/02/18 13:10 78yo M with MMP presents to the ED with SOB, cough, subjective fevers, and tachypnea. +diminished R sided BS. CXR with infiltrates consistent with PNA. Given recent admission, pt needs admission for HCAP cvg. 09/02/18 14:[address] Perry, pt accepted for admission Case discussed in detail with admitting physician including history, physical exam and ancillary studies. Admitting physician has assumed care for the patient, will follow all pending diagnostics and will complete the evaluation and treatment. *DC/Admit/Observation/Transfer Diagnosis at time of Disposition: Pneumonia Qualifiers: Pneumonia type: due to unspecified organism Laterality: right Lung location: lower lobe of lung Qualified Code(s): J18.1 - Lobar pneumonia, unspecified organism - Discharge Dispostion Condition at time of disposition: Stable Decision to Admit order Date/Time: Decision to Admit Order Category Date Time Status Decision to Admit to Hospital Routine Admission 09/02/18 12:57 Active - Referrals Referrals: Alena Perry MD [Primary Care Provider] - - Patient Instructions - Post Discharge Activity Heart Score/ECG Review #1 09/02/18 13:12 Twelve-lead EKG was performed and reviewed by me. Normal sinus rhythm, rate 75. Left axis deviation.+ Left anterior fascicular block. No ST elevations.
[2018-09-02 15:03] LABS: URINE APPEARANCE CLEAR; URINE BILIRUBIN NEGATIVE (NEGATIVE); URINE COLOR YELLOW; URINE GLUCOSE (UA) NEGATIVE (NEGATIVE); URINE KETONE NEGATIVE (NEGATIVE); URINE LEUK ESTERASE NEGATIVE (NEGATIVE); URINE NITRITE NEGATIVE (NEGATIVE); URINE PROTEIN NEGATIVE (NEGATIVE)
--- NOTE | 2018-09-02 15:18 | EKG ---
Test Reason : Blood Pressure : / mmHG Vent. Rate : 075 BPM Atrial Rate : 075 BPM P-R Int : 194 ms QRS Dur : 114 ms QT Int : 420 ms P-R-T Axes : 043 -70 024 degrees QTc Int : 469 ms NORMAL SINUS RHYTHM LEFT ANTERIOR FASCICULAR BLOCK CANNOT RULE OUT ANTERIOR INFARCT , AGE UNDETERMINED ABNORMAL ECG WHEN COMPARED WITH ECG OF 27-JUL-2018 02:25, T WAVE VARIATION Confirmed by XIANG BALL MD ([id number]) on 09/02/2018 3:18:03 PM Referred By: Confirmed By:XIANG BALL MD
[2018-09-02] MEDS ORDERED: ACETAMINOPHEN 325 MG TABLET (FP) PO PRN ×2 (15:20→18:57)
[2018-09-02] MEDS ORDERED: amLODIPine BESYLATE 5 MG TABLET (FP) ONE (15:36)
[2018-09-02] MEDS: amLODIPine BESYLATE 10 MG TABLET (FP) PO SCH (15:41)
[2018-09-02] MEDS: PANTOPRAZOLE 40 MG TABLET (FP) PO SCH (15:41)
[2018-09-02] MEDS: BACLOFEN 10 MG TABLET (FP) PO SCH (15:41)
[2018-09-02] MEDS ORDERED: ALBUTEROL SO4 2.5/IPRATROPIUM 0.5 INH SOL 3 ML VIAL.NEB. NEB ONE (15:43)
[2018-09-02] MEDS: ALBUTEROL SO4 2.5/IPRATROPIUM 0.5 INH SOL 3 ML VIAL.NEB. NEB SCH ×2 (15:44→21:40)
--- NOTE | 2018-09-02 15:44 | HP ---
Admitting History and Physical - Admission History of Present Illness: Pt is an 78 yo M, with PMH of chronic pain, CAD (s/p MD, normal EF, on Plavix), anxiety, HTN, HLD, and prostate CA (s/p prostatectomy), who is presenting with complaints of worsening productive cough x2 weeks with associated subjective fevers/chills. Pt states the cough is productive of yellow sputum, and he has no sputum at baseline. He awoke this AM with chest "tightness" and "a sound coming from his chest like wheezing". Pt states he has had decreased walking tolerance, but this is due to his worsening hip/back pain and not his breathing. Pt denies any headache, vision changes, syncope, chest pain, palpitations, SOB, nausea/vomiting, abdominal pain, urinary symptoms, diarrhea/ constipation, or leg swelling. Social: Pt denies any cigarette, alcohol, or drug use. Pt denies any recent travel or sick contacts. Surgical: prostatectomy. Family: no relevant history. 09/02/18 13:15 History Source: Patient, Medical Record - Past Medical History Cardiovascular: Yes: CAD, HTN, Hyperlipdemia, MD. No: AFIB, CHF Heme/Onc: Yes: Other (prostate ca) Musculoskeletal: Yes: Chronic low back pain, Osteoarthritis, Other (right hip pain) - Past Surgical History Past Surgical History: Yes: Hernia Repair, Prostatectomy - Smoking History Smoking history: Unknown if ever smoked Have you smoked in the past 12 months: No Aproximately how many cigarettes per day: 0 - Alcohol/Substance Use Hx Alcohol Use: No (last drink >18 yrs ago) History of Substance Use: reports: None - Social History ADL: Independent Occupation: retired History of Recent Travel: No Home Medications - Allergies Allergies/Adverse Reactions: Allergies Allergy/AdvReac Type Severity Reaction Status Date / Time levofloxacin [Levofloxacin] Allergy Mild Itching Verified 09/02/18 10:44 - Home Medications Home Medications: Ambulatory Orders Atorvastatin Ca [Lipitor] 10 mg PO HS #30 tablet 04/01/14 Clopidogrel Bisulfate [Clopidogrel] 75 mg PO DAILY 08/03/16 Metoprolol Succinate [Toprol XL -] 100 mg PO DAILY #30 tab.sr.24h 02/07/18 Amlodipine Besylate [Norvasc -] 10 mg PO DAILY #30 tablet 07/24/18 Baclofen 10 mg PO DAILY 30 Days #30 tablet MDD 1 07/24/18 Docusate Sodium [Colace -] 100 mg PO TID #90 capsule 07/24/18 Lisinopril/Hydrochlorothiazide [Lisinopril-Hctz 20-12.5 mg Tab] 1 each PO DAILY #30 tablet MDD 1 07/24/18 Multivitamin [Multiple Vitamins] 1 each PO DAILY #30 tablet 07/24/18 Polyethylene Glycol 3350 [Miralax 255 gm Btl -] 17 gm PO DAILY #1 btl 07/24/18 Acetaminophen [Tylenol .Regular Strength -] 325 mg PO Q12H PRN tablet 07/27/18 Diclofenac Sodium 2 gm TP TID PRN #1 tube 08/20/18 Oxycodone HCl/Acetaminophen [Endocet 5-325 Tablet] 1 each PO TID PRN #90 tablet MDD 3 08/20/18 Family Disease History - Family Disease History Family Disease History: Diabetes: Sister (two - one living, one DM), [place] : Mother (), Other: Father (did not know him), Brother (two - in [place] - chronic pain), Sister, Son (2 adult sons), Daughter (one adult - in [place]) Physical Examination Vital Signs: Vital Signs Temperature 98.3 F 09/02/18 10:47 Pulse Rate 87 09/02/18 10:47 Respiratory Rate 22 H 09/02/18 10:47 Blood Pressure 141/83 09/02/18 10:47 O2 Sat by Pulse Oximetry (%) 98 09/02/18 12:10 Constitutional: Yes: Well Nourished, No Distress, Mild Distress, Obese Eyes: Yes: Conjunctiva Clear, EOM Intact HENT: Yes: Atraumatic, Normocephalic Neck: Yes: Supple, Trachea Midline Cardiovascular: Yes: Regular Rate and Rhythm, Tachycardia Respiratory: Yes: Cough, Diminished, Rhonchi (bilateral right >left), Wheezes Gastrointestinal: Yes: Normal Bowel Sounds ...Rectal Exam: Yes: Deferred Renal/: Yes: WNL Breast(s): Yes: WNL Musculoskeletal: Yes: Back Pain Extremities: Yes: WNL Edema: No Peripheral Pulses WNL: Yes Integumentary: Yes: WNL Neurological: Yes: WNL ...Motor Strength: WNL Psychiatric: Yes: WNL, Alert, Oriented Labs: CBC, BMP 09/02/18 12:09 09/02/18 12:09 Problem List - Problems (1) Pneumonia Code(s): J18.9 - PNEUMONIA, UNSPECIFIED ORGANISM Qualifiers: Pneumonia type: due to unspecified organism Laterality: right Lung location: lower lobe of lung Qualified Code(s): J18.1 - Lobar pneumonia, unspecified organism (2) Chest pain syndrome Code(s): R07.9 - CHEST PAIN, UNSPECIFIED (3) Chronic pain Code(s): G89.29 - OTHER CHRONIC PAIN (4) Atypical chest pain Code(s): R07.89 - OTHER CHEST PAIN (5) Coronary artery disease Code(s): I25.10 - ATHSCL HEART DISEASE OF [place] CORONARY ARTERY W/O ANG PCTRS Qualifiers: Coronary Disease-Associated Artery/Lesion type: [place] artery [place] vs. transplanted heart: [place] heart Associated angina: with unspecified angina Qualified Code(s): I25.119 - Atherosclerotic heart disease of [place] coronary artery with unspecified angina pectoris (6) History of prostate cancer Code(s): Z85.46 - PERSONAL HISTORY OF MALIGNANT NEOPLASM OF PROSTATE (7) Hypertension Code(s): I10 - ESSENTIAL (PRIMARY) HYPERTENSION Qualifiers: Hypertension type: essential hypertension Qualified Code(s): I10 - Essential (primary) hypertension
[2018-09-02] MEDS ORDERED: VANCOMYCIN 1,500 MG in DEXTROSE 5%-WATER - 500 ML IVPB ONE (16:00)
[2018-09-02] MEDS ORDERED: methylPREDNISolone NA SUCC 40 MG/1 ML VIAL ONE (18:10)
[2018-09-02] MEDS: methylPREDNISolone NA SUCC 40 MG/1 ML VIAL IVPUSH SCH (18:14)
--- NOTE | 2018-09-02 18:19 | PN ---
Progress Note (short form) - Note Progress Note: ID consult dictated imp/reccd 78 yo man from home with c/o cough and sob from this am reports he has had a cough productive of yellow sputum for sevral days no hemoptysis +constipation for several days- resolved today no fevers had a one day admission for chest pain 07/26 to 07/27 no recent antibiotics no fever in ED normal WBC cxray with question of bibasilar infiltrate right greater then left received vanco/zosyn and zithromax in ED-no blood cultures sent possible CAP versus bronchitis repeat cxray PA and lateral in am sputum culture urinary antigens agree with steroids/nebs can switch to ceftriaxone/zithromax Problem List - Problems (1) Pneumonia Code(s): J18.9 - PNEUMONIA, UNSPECIFIED ORGANISM Qualifiers: Pneumonia type: due to unspecified organism Laterality: right Lung location: lower lobe of lung Qualified Code(s): J18.1 - Lobar pneumonia, unspecified organism
[2018-09-02] MEDS ORDERED: CEFTRIAXONE 2 GM/100 ML BAG IVPB ONE (18:56)
[2018-09-02] MEDS ORDERED: oxyCODONE HCL 5 MG TABLET PO PRN (18:57)
[2018-09-02] MEDS: CEFTRIAXONE 2 GM in DEXTROSE 5%-WATER 100 ML IVPB SCH ×2 (19:01→19:03)
--- NOTE | 2018-09-02 19:27 | CONS ---
INFECTIOUS DISEASE CONSULTATION DATE OF CONSULTATION: 09/02/2018 REQUESTING PHYSICIAN: Alena Perry MD This is an 78-year-old man with a history of chronic pain, coronary artery disease, anxiety, hypertension, hyperlipidemia, and prostate cancer. He presents with complaints that he woke up this morning with acute onset of shortness of breath, worsening cough, and right-sided chest pain. He notes he has had a cough with yellow sputum for the last week or two. He denies any abdominal pain, has had constipation which was resolved today. He denies dysuria, but reports he urinates frequently. There is no history of any travel. He was hospitalized for 1 day last month from July 26 to July 27 for chest pain. PAST MEDICAL HISTORY: Coronary artery disease, hypertension, hyperlipidemia, [place]. He has a history of prostate cancer, chronic back pain, and osteoarthritis with right hip pain. He has a history of prior MN and is on Plavix. He has a history of anxiety as well. SURGICAL HISTORY: Notable for hernia repair and prostatectomy. SOCIAL HISTORY: There is no history of any cigarette, alcohol, or substance use. There has been no recent travel. FAMILY HISTORY: Noncontributory. ALLERGIES: he is allergic to LEVOFLOXACIN. MEDICATIONS AT HOME: Include Lipitor, Plavix, Toprol-XL, Norvasc, baclofen, Colace, lisinopril, hydrochlorothiazide, multivitamins, MiraLAX, diclofenac, and Percocet. REVIEW OF SYSTEMS: As per HPI. PHYSICAL EXAMINATION: Vital Signs: He is afebrile, temperature is 98.3. Pulse is 74. Blood pressure 137/78. Respiratory rate is 18. He is saturating 97% on room air. HEENT: He is normocephalic. His eyes are anicteric. Neck: Supple. Lungs: Scattered rhonchi. Heart: Regular rate and rhythm. Abdomen: Soft, nontender. Extremities: Without edema. LABORATORY DATA: White count is 6, hemoglobin 15.2, platelets are 190. INR is 1. BUN is 16 and creatinine 0.7. LFTs are normal. Urinalysis is negative. Influenza screen is negative. No cultures were sent. Chest x-ray reveals increased bibasilar infiltrates. In summary, this is an 78-year-old man admitted from home with complaints of productive sputum and some right-sided chest discomfort. He could have some early pneumonia versus bronchitis. He received vancomycin, Zosyn, and Zithromax in the emergency room. I suspect this is possible community-acquired pneumonia versus bronchitis. He is not hypoxic, he has no fever, and his white count is normal. Would repeat a chest x-ray PA and lateral. Would obtain sputum cultures, urinary antigens. There is no value to blood culture as he has gotten multiple antibiotics already. Would agree with steroids and nebulizers and would treat him with ceftriaxone and Zithromax. Further recommendations to follow. Ross [id number]
[2018-09-02] MEDS: MOMETASONE FUROATE 110 MCG/IH INHALER IH SCH (22:51)
[2018-09-02] MEDS: DOCUSATE SODIUM 100 MG CAPSULE (FP) PO SCH (22:52)
[2018-09-02] MEDS: ATORVASTATIN CA 10 MG TABLET (FP) PO SCH (23:38)
[2018-09-03] MEDS ORDERED: ALBUTEROL SO4 2.5/IPRATROPIUM 0.5 INH SOL 3 ML VIAL.NEB. NEB ONE (00:22)
[2018-09-03 01:23] VITALS: BMI 30.2
[2018-09-03] MEDS: methylPREDNISolone NA SUCC 40 MG/1 ML VIAL IVPUSH SCH ×3 (01:35→17:18)
[2018-09-03] MEDS: DOCUSATE SODIUM 100 MG CAPSULE (FP) PO SCH ×3 (06:20→21:40)
[2018-09-03 07:17] LABS: HEMATOCRIT 46.1 % (35.4-49); MCH 31.7 pg (25.7-33.7); MCHC 34.7 g/dl (32.0-35.9); MEAN CELL VOLUME 91.3 fl (80-96); PLATELET COUNT 193 K/MM3 (134-434); RBC 5.05 M/mm3 (4.00-5.60); RDW 13.4 % (11.9-15.9); WHITE BLOOD COUNT 12.1 K/mm3 (4.0-10.0)
[2018-09-03 07:50] LABS: ANION GAP 7 MMOL/L (8-16); BLOOD UREA NITROGEN 20 mg/dL (7-18); CHLORIDE 103 mmol/L (98-107); CO2 26 mmol/L (21-32); CREATININE 0.7 mg/dL (0.55-1.3); GLUCOSE,RANDOM 171 mg/dL (74-106); MAGNESIUM 2.3 mg/dL (1.8-2.4); POTASSIUM 3.5 mmol/L (3.5-5.1); SODIUM 136 mmol/L (136-145)
[2018-09-03] MEDS: ALBUTEROL SO4 2.5/IPRATROPIUM 0.5 INH SOL 3 ML VIAL.NEB. NEB SCH ×4 (08:03→21:07)
--- NOTE | 2018-09-03 08:03 | PN ---
Progress Note (short form) - Note Progress Note: seen and examined in room c/o chest tightness and anterior mid chest wheezing unable to expectorate some improvement this morning Vital Signs Period Temp Pulse Resp BP Sys/Das Pulse Ox Last 24 Hr 97.7 F-98.3 F 71-87 18-22 137-155/78-90 96-99 neck supple heart s1/S2 lung coarse wheezing right base otherwise grossly clear ( s/p resp treatment ) abd soft non tender ext no edema FROM CBC, BMP 09/03/18 06:30 09/03/18 06:30 CXR bibasilar inc marking repeat pending this am Active Medications Acetaminophen (Tylenol -) 325 mg PO Q12H PRN PRN Reason: PAIN LEVEL 4-6 Acetaminophen (Tylenol -) 325 mg PO Q8H PRN PRN Reason: PAIN LEVEL 7-10 Albuterol/Ipratropium (Duoneb -) 1 amp NEB RQID [facility] Last Admin: 09/03/18 08:03 Dose: 1 amp Amlodipine Besylate (Norvasc -) 10 mg PO DAILY [facility] Last Admin: 09/02/18 15:41 Dose: 10 mg Atorvastatin Calcium (Lipitor -) 10 mg PO HS [facility] Last Admin: 09/02/18 23:38 Dose: 10 mg Baclofen (Lioresal -) 10 mg PO DAILY [facility] Last Admin: 09/02/18 15:41 Dose: 10 mg Clopidogrel Bisulfate (Plavix -) 75 mg PO DAILY [facility] Docusate Sodium (Colace -) 100 mg PO TID [facility] Last Admin: 09/03/18 06:20 Dose: 100 mg Ceftriaxone Sodium 2 gm/ (Dextrose) 100 mls @ 100 mls/hr IVPB DAILY [facility]; Protocol Last Admin: 09/02/18 19:03 Dose: Not Given Lisinopril (Prinivil) 20 mg PO DAILY [facility] Methylprednisolone Sodium Succinate (Solu-Medrol -) 40 mg IVPUSH Q8H-IV [facility] Last Admin: 09/03/18 01:35 Dose: 40 mg Metoprolol Succinate (Toprol Xl -) 100 mg PO DAILY [facility] Mometasone Furoate (Asmanex 110mcg -) 1 puff IH BID [facility] Last Admin: 09/02/18 22:51 Dose: 1 puff Multivitamins/Minerals/Vitamin C (Tab-A-Vit -) 1 tab PO DAILY [facility] Oxycodone HCl (Roxicodone -) 5 mg PO Q8H PRN PRN Reason: PAIN LEVEL 7 - 10 Pantoprazole Sodium (Protonix -) 40 mg PO DAILY [facility] Last Admin: 09/02/18 15:41 Dose: 40 mg Polyethylene Glycol (Miralax (For Bowel Prep) -) 17 gm PO DAILY [facility] 78 y/o male with PMH of chronic pain, CAD (s/p PA, normal EF, on Plavix), anxiety, HTN, HLD, and prostate CA (s/p prostatectomy), who is presenting with complaints of worsening productive cough x2 weeks with associated subjective fevers/chills. # PNA CAP - ABX appreciate ID opinion steroids/ nedulizer / PPI / repeat CXR this am # CAD continue home meds stable # HLD home meds stable # HTN monitor Bp
[2018-09-03] MEDS ORDERED: PT OWN MED DRAWER 7, Y5N ONE ×2 (08:58→17:49)
[2018-09-03] MEDS ORDERED: DEXTROSE 5%-WATER 100 ML IVPB ONE (08:58)
[2018-09-03] MEDS: BACLOFEN 10 MG TABLET (FP) PO SCH (09:16)
[2018-09-03] MEDS: CLOPIDOGREL BISULFATE 75 MG TABLET (FP) PO SCH (09:16)
[2018-09-03] MEDS: PANTOPRAZOLE 40 MG TABLET (FP) PO SCH (09:16)
[2018-09-03] MEDS: MULTIVITAMINS (DAILY MVI) TABLET (FP) PO SCH (09:16)
[2018-09-03] MEDS: POLYETHYLENE GLYCOL 3350 255 GM BTL PO SCH (09:16)
[2018-09-03] MEDS: LISINOPRIL 10 MG TABLET (FP) PO SCH (09:16)
[2018-09-03] MEDS: amLODIPine BESYLATE 10 MG TABLET (FP) PO SCH (09:16)
[2018-09-03] MEDS: CEFTRIAXONE 2 GM in DEXTROSE 5%-WATER 100 ML IVPB SCH (09:17)
[2018-09-03] MEDS: MOMETASONE FUROATE 110 MCG/IH INHALER IH SCH ×2 (09:17→21:50)
[2018-09-03] MEDS: ATORVASTATIN CA 10 MG TABLET (FP) PO SCH (21:40)
[2018-09-04] MEDS: methylPREDNISolone NA SUCC 40 MG/1 ML VIAL IVPUSH SCH ×3 (02:03→17:45)
[2018-09-04] MEDS: DOCUSATE SODIUM 100 MG CAPSULE (FP) PO SCH ×3 (06:07→21:56)
[2018-09-04] MEDS: ALBUTEROL SO4 2.5/IPRATROPIUM 0.5 INH SOL 3 ML VIAL.NEB. NEB SCH ×4 (08:35→21:04)
[2018-09-04] MEDS ORDERED: DEXTROSE 5%-WATER 100 ML IVPB ONE (09:01)
[2018-09-04] MEDS: CEFTRIAXONE 2 GM in DEXTROSE 5%-WATER 100 ML IVPB SCH (09:06)
[2018-09-04] MEDS: amLODIPine BESYLATE 10 MG TABLET (FP) PO SCH (09:10)
[2018-09-04] MEDS: LISINOPRIL 10 MG TABLET (FP) PO SCH (09:10)
[2018-09-04] MEDS: BACLOFEN 10 MG TABLET (FP) PO SCH (09:10)
[2018-09-04] MEDS: MULTIVITAMINS (DAILY MVI) TABLET (FP) PO SCH (09:10)
[2018-09-04] MEDS: PANTOPRAZOLE 40 MG TABLET (FP) PO SCH ×2 (09:10→21:57)
[2018-09-04] MEDS: CLOPIDOGREL BISULFATE 75 MG TABLET (FP) PO SCH (09:10)
[2018-09-04] MEDS: MOMETASONE FUROATE 110 MCG/IH INHALER IH SCH ×2 (09:17→21:56)
[2018-09-04] MEDS: POLYETHYLENE GLYCOL 3350 255 GM BTL PO SCH (09:19)
--- NOTE | 2018-09-04 13:17 | PN ---
Progress Note (short form) - Note Progress Note: patient ambulating in hallway reports chest tightness early am better now also bout of diarrhea and upset stomach today " I get all my pills at the same time " "that upsets my stomach " Vital Signs Period Temp Pulse Resp BP Sys/Dsa Pulse Ox Last 24 Hr 98.1 F-98.8 F 66-82 20-21 130-148/74-102 96-96 neck supple heart s1/S2 lung improved bs rhonchi at right base abd soft no tenderness ext no edema FROM CBC, BMP 09/03/18 06:30 09/03/18 06:30 CXR bibasilar inc marking Active Medications Acetaminophen (Tylenol -) 325 mg PO Q12H PRN PRN Reason: PAIN LEVEL 4-6 Acetaminophen (Tylenol -) 325 mg PO Q8H PRN PRN Reason: PAIN LEVEL 7-10 Albuterol/Ipratropium (Duoneb -) 1 amp NEB RQID [facility] Last Admin: 09/04/18 11:15 Dose: 1 amp Amlodipine Besylate (Norvasc -) 10 mg PO DAILY [facility] Last Admin: 09/04/18 09:10 Dose: 10 mg Atorvastatin Calcium (Lipitor -) 10 mg PO HS [facility] Last Admin: 09/03/18 21:40 Dose: 10 mg Baclofen (Lioresal -) 10 mg PO DAILY [facility] Last Admin: 09/04/18 09:10 Dose: 10 mg Clopidogrel Bisulfate (Plavix -) 75 mg PO DAILY [facility] Last Admin: 09/04/18 09:10 Dose: 75 mg Docusate Sodium (Colace -) 100 mg PO TID [facility] Last Admin: 09/04/18 06:07 Dose: 100 mg Ceftriaxone Sodium 2 gm/ (Dextrose) 100 mls @ 100 mls/hr IVPB DAILY [facility]; Protocol Last Admin: 09/04/18 09:06 Dose: 100 mls/hr Lisinopril (Prinivil) 20 mg PO DAILY [facility] Last Admin: 09/04/18 09:10 Dose: 20 mg Methylprednisolone Sodium Succinate (Solu-Medrol -) 40 mg IVPUSH Q8H-IV [facility] Last Admin: 09/04/18 09:09 Dose: 40 mg Metoprolol Succinate (Toprol Xl -) 100 mg PO DAILY [facility] Last Admin: 04/10/19 09:10 Dose: 100 mg Mometasone Furoate (Asmanex 110mcg -) 1 puff IH BID [facility] Last Admin: 09/04/18 09:17 Dose: 1 puff Multivitamins/Minerals/Vitamin C (Tab-A-Vit -) 1 tab PO DAILY [facility] Last Admin: 09/04/18 09:10 Dose: 1 tab Oxycodone HCl (Roxicodone -) 5 mg PO Q8H PRN PRN Reason: PAIN LEVEL 7 - 10 Pantoprazole Sodium (Protonix -) 40 mg PO DAILY [facility] Last Admin: 09/04/18 09:10 Dose: 40 mg Polyethylene Glycol (Miralax (For Bowel Prep) -) 17 gm PO DAILY [facility] Last Admin: 09/04/18 09:19 Dose: Not Given 78 y/o male with PMH of chronic pain, CAD (s/p CA, normal EF, on Plavix), anxiety, HTN, HLD, and prostate CA (s/p prostatectomy), who is presenting with complaints of worsening productive cough x2 weeks with associated subjective fevers/chills. # PNA CAP - ABX appreciate ID opinion steroids/ nedulizer / PPI / repeat CXR this am # diarrhea/ abdomial pain 2/2 to steroids ? inc PPI to BID follow cbc # CAD continue home meds stable # HLD home meds stable # HTN monitor Bp Problem List - Problems (1) Pneumonia Code(s): J18.9 - PNEUMONIA, UNSPECIFIED ORGANISM Qualifiers: Pneumonia type: due to unspecified organism Laterality: right Lung location: lower lobe of lung Qualified Code(s): J18.1 - Lobar pneumonia, unspecified organism (2) Chest pain syndrome Code(s): R07.9 - CHEST PAIN, UNSPECIFIED (3) Chronic pain Code(s): G89.29 - OTHER CHRONIC PAIN (4) Atypical chest pain Code(s): R07.89 - OTHER CHEST PAIN (5) Coronary artery disease Code(s): I25.10 - ATHSCL HEART DISEASE OF [place] CORONARY ARTERY W/O ANG PCTRS Qualifiers: Coronary Disease-Associated Artery/Lesion type: [place] artery [place] vs. transplanted heart: [place] heart Associated angina: with unspecified angina Qualified Code(s): I25.119 - Atherosclerotic heart disease of [place] coronary artery with unspecified angina pectoris (6) History of prostate cancer Code(s): Z85.46 - PERSONAL HISTORY OF MALIGNANT NEOPLASM OF PROSTATE (7) Hypertension Code(s): I10 - ESSENTIAL (PRIMARY) HYPERTENSION Qualifiers: Hypertension type: essential hypertension Qualified Code(s): I10 - Essential (primary) hypertension
[2018-09-04] MEDS: ATORVASTATIN CA 10 MG TABLET (FP) PO SCH (21:56)
[2018-09-05] MEDS: methylPREDNISolone NA SUCC 40 MG/1 ML VIAL IVPUSH SCH ×3 (02:58→17:24)
[2018-09-05] MEDS: DOCUSATE SODIUM 100 MG CAPSULE (FP) PO SCH ×3 (05:36→22:03)
[2018-09-05 07:13] LABS: BASO % 0.1 % (0-2.0); LYMPH % 4.8 % (8-40); MCH 31.8 pg (25.7-33.7); MCHC 34.8 g/dl (32.0-35.9); MEAN CELL VOLUME 91.3 fl (80-96); MEAN PLT VOLUME 9.9 fl (7.5-11.1); MONO % 3.4 % (3.8-10.2); NEUT % 91.7 % (42.8-82.8); PLATELET COUNT 186 K/MM3 (134-434); RBC 4.71 M/mm3 (4.00-5.60); WHITE BLOOD COUNT 11.4 K/mm3 (4.0-10.0)
[2018-09-05] MEDS: ALBUTEROL SO4 2.5/IPRATROPIUM 0.5 INH SOL 3 ML VIAL.NEB. NEB SCH ×4 (07:32→21:00)
[2018-09-05 07:44] LABS: ANION GAP 7 MMOL/L (8-16); BLOOD UREA NITROGEN 17 mg/dL (7-18); CALCIUM 8.7 mg/dL (8.5-10.1); CHLORIDE 105 mmol/L (98-107); CO2 26 mmol/L (21-32); CREATININE 0.7 mg/dL (0.55-1.3); GLUCOSE,RANDOM 168 mg/dL (74-106); MAGNESIUM 2.4 mg/dL (1.8-2.4); POTASSIUM 3.6 mmol/L (3.5-5.1); SODIUM 138 mmol/L (136-145)
[2018-09-05] MEDS ORDERED: DEXTROSE 5%-WATER 100 ML IVPB ONE (10:09)
[2018-09-05] MEDS: MOMETASONE FUROATE 110 MCG/IH INHALER IH SCH ×2 (10:12→22:10)
[2018-09-05] MEDS: amLODIPine BESYLATE 10 MG TABLET (FP) PO SCH (10:15)
[2018-09-05] MEDS: BACLOFEN 10 MG TABLET (FP) PO SCH (10:15)
[2018-09-05] MEDS: CLOPIDOGREL BISULFATE 75 MG TABLET (FP) PO SCH (10:15)
[2018-09-05] MEDS: LISINOPRIL 10 MG TABLET (FP) PO SCH (10:15)
[2018-09-05] MEDS: PANTOPRAZOLE 40 MG TABLET (FP) PO SCH ×2 (10:16→22:09)
[2018-09-05] MEDS: MULTIVITAMINS (DAILY MVI) TABLET (FP) PO SCH (10:16)
[2018-09-05] MEDS: CEFTRIAXONE 2 GM in DEXTROSE 5%-WATER 100 ML IVPB SCH (10:18)
[2018-09-05] MEDS: POLYETHYLENE GLYCOL 3350 255 GM BTL PO SCH (10:20)
[2018-09-05 11:30] LABS: ANISOCYTOSIS 0; MACROCYTOSIS 0; PLATELET ESTIMATE NORMAL
[2018-09-05] MEDS: guaiFENesin 200 MG/10 ML 10 ML UNIT-DOSE CUPS PO PRN ×2 (12:37→17:24)
[2018-09-05] MEDS: ATORVASTATIN CA 10 MG TABLET (FP) PO SCH (22:09)
[2018-09-06] MEDS: methylPREDNISolone NA SUCC 40 MG/1 ML VIAL IVPUSH SCH ×3 (02:30→17:31)
[2018-09-06] MEDS: DOCUSATE SODIUM 100 MG CAPSULE (FP) PO SCH ×3 (06:28→21:25)
[2018-09-06] MEDS: ALBUTEROL SO4 2.5/IPRATROPIUM 0.5 INH SOL 3 ML VIAL.NEB. NEB SCH ×4 (08:10→21:33)
[2018-09-06] MEDS ORDERED: DEXTROSE 5%-WATER 100 ML IVPB ONE (09:43)
[2018-09-06] MEDS: CEFTRIAXONE 2 GM in DEXTROSE 5%-WATER 100 ML IVPB SCH (09:56)
[2018-09-06] MEDS: MULTIVITAMINS (DAILY MVI) TABLET (FP) PO SCH (09:57)
[2018-09-06] MEDS: BACLOFEN 10 MG TABLET (FP) PO SCH (09:57)
[2018-09-06] MEDS: CLOPIDOGREL BISULFATE 75 MG TABLET (FP) PO SCH (09:57)
[2018-09-06] MEDS: PANTOPRAZOLE 40 MG TABLET (FP) PO SCH ×2 (09:57→21:25)
[2018-09-06] MEDS: MOMETASONE FUROATE 110 MCG/IH INHALER IH SCH ×2 (09:59→21:24)
[2018-09-06] MEDS: POLYETHYLENE GLYCOL 3350 255 GM BTL PO SCH (09:59)
--- NOTE | 2018-09-06 11:06 | PN ---
Progress Note (short form) - Note Progress Note: patient in bed reports chest tightness early am better now no further diarrhea Vital Signs Period Temp Pulse Resp BP Sys/Das Pulse Ox Last 24 Hr 98.1 F-98.8 F 66-82 20-21 130-148/74-102 96-96 neck supple heart s1/S2 lung improved bs rhonchi at right base abd soft no tenderness ext no edema FROM CBC, BMP 09/05/18 06:40 09/05/18 06:40 Active Medications Acetaminophen (Tylenol -) 325 mg PO Q12H PRN PRN Reason: PAIN LEVEL 4-6 Acetaminophen (Tylenol -) 325 mg PO Q8H PRN PRN Reason: PAIN LEVEL 7-10 Albuterol/Ipratropium (Duoneb -) 1 amp NEB RQID [facility] Last Admin: 09/06/18 08:10 Dose: 1 amp Amlodipine Besylate (Norvasc -) 10 mg PO DAILY [facility] Last Admin: 09/05/18 10:15 Dose: 10 mg Atorvastatin Calcium (Lipitor -) 10 mg PO HS [facility] Last Admin: 09/05/18 22:09 Dose: 10 mg Baclofen (Lioresal -) 10 mg PO DAILY [facility] Last Admin: 09/06/18 09:57 Dose: 10 mg Clopidogrel Bisulfate (Plavix -) 75 mg PO DAILY [facility] Last Admin: 09/06/18 09:57 Dose: 75 mg Docusate Sodium (Colace -) 100 mg PO TID [facility] Last Admin: 09/06/18 06:28 Dose: 100 mg Guaifenesin (Robitussin -) 15 ml PO Q4H PRN PRN Reason: COUGH Last Admin: 09/05/18 17:24 Dose: 15 ml Ceftriaxone Sodium 2 gm/ (Dextrose) 100 mls @ 100 mls/hr IVPB DAILY [facility]; Protocol Last Admin: 09/06/18 09:56 Dose: 100 mls/hr Lisinopril (Prinivil) 20 mg PO DAILY [facility] Last Admin: 09/05/18 10:15 Dose: 20 mg Methylprednisolone Sodium Succinate (Solu-Medrol -) 40 mg IVPUSH Q8H-IV [facility] Last Admin: 09/06/18 09:51 Dose: 40 mg Metoprolol Succinate (Toprol Xl -) 100 mg PO DAILY [facility] Last Admin: 09/06/18 09:57 Dose: 100 mg Mometasone Furoate (Asmanex 110mcg -) 1 puff IH BID [facility] Last Admin: 09/06/18 09:59 Dose: 1 puff Multivitamins/Minerals/Vitamin C (Tab-A-Vit -) 1 tab PO DAILY [facility] Last Admin: 09/06/18 09:57 Dose: 1 tab Oxycodone HCl (Roxicodone -) 5 mg PO Q8H PRN PRN Reason: PAIN LEVEL 7 - 10 Pantoprazole Sodium (Protonix -) 40 mg PO BID [facility] Last Admin: 09/06/18 09:57 Dose: 40 mg Polyethylene Glycol (Miralax (For Bowel Prep) -) 17 gm PO DAILY [facility] Last Admin: 09/06/18 09:59 Dose: Not Given CXR bibasilar [place] marking 78 y/o male with PMH of chronic pain, CAD (s/p MS, normal EF, on Plavix), anxiety, HTN, HLD, and prostate CA (s/p prostatectomy), who is presenting with complaints of worsening productive cough x2 weeks with associated subjective fevers/chills. No further chills or fever / breathing improved / cough productive # PNA CAP - ABX appreciate ID opinion steroids/ nedulizer / PPI / expectorants =will tryto taper staroids # diarrhea/ abdomial pain 2/2 to steroids ? inc PPI to BID cbc has remained stable # CAD continue home meds stable # HLD home meds stable # HTN monitor Bp Problem List - Problems (1) Pneumonia Code(s): J18.9 - PNEUMONIA, UNSPECIFIED ORGANISM Qualifiers: Pneumonia type: due to unspecified organism Laterality: right Lung location: lower lobe of lung Qualified Code(s): J18.1 - Lobar pneumonia, unspecified organism (2) Chest pain syndrome Code(s): R07.9 - CHEST PAIN, UNSPECIFIED (3) Chronic pain Code(s): G89.29 - OTHER CHRONIC PAIN (4) Atypical chest pain Code(s): R07.89 - OTHER CHEST PAIN (5) Coronary artery disease Code(s): I25.10 - ATHSCL HEART DISEASE OF [place] CORONARY ARTERY W/O ANG PCTRS Qualifiers: Coronary Disease-Associated Artery/Lesion type: [place] artery [place] vs. transplanted heart: [place] heart Associated angina: with unspecified angina Qualified Code(s): I25.119 - Atherosclerotic heart disease of [place] coronary artery with unspecified angina pectoris (6) History of prostate cancer Code(s): Z85.46 - PERSONAL HISTORY OF MALIGNANT NEOPLASM OF PROSTATE (7) Hypertension Code(s): I10 - ESSENTIAL (PRIMARY) HYPERTENSION Qualifiers: Hypertension type: essential hypertension Qualified Code(s): I10 - Essential (primary) hypertension
[2018-09-06] MEDS: amLODIPine BESYLATE 10 MG TABLET (FP) PO SCH (12:08)
[2018-09-06] MEDS: LISINOPRIL 10 MG TABLET (FP) PO SCH (12:08)
[2018-09-06] MEDS: ATORVASTATIN CA 10 MG TABLET (FP) PO SCH (21:25)
[2018-09-07] MEDS: methylPREDNISolone NA SUCC 40 MG/1 ML VIAL IVPUSH SCH ×2 (02:00→09:46)
[2018-09-07] MEDS: DOCUSATE SODIUM 100 MG CAPSULE (FP) PO SCH ×3 (06:18→22:12)
[2018-09-07 08:38] LABS: BASO % 0.2 % (0-2.0); EOS % 0.3 % (0-4.5); HEMATOCRIT 48.6 % (35.4-49); HEMOGLOBIN 16.8 GM/dL (11.7-16.9); LYMPH % 6.2 % (8-40); MCH 31.7 pg (25.7-33.7); MCHC 34.5 g/dl (32.0-35.9); MEAN CELL VOLUME 92.1 fl (80-96); MEAN PLT VOLUME 10.1 fl (7.5-11.1); MONO % 6.6 % (3.8-10.2); NEUT % 86.7 % (42.8-82.8); PLATELET COUNT 194 K/MM3 (134-434); RBC 5.28 M/mm3 (4.00-5.60); WHITE BLOOD COUNT 11.9 K/mm3 (4.0-10.0)
[2018-09-07] MEDS: ALBUTEROL SO4 2.5/IPRATROPIUM 0.5 INH SOL 3 ML VIAL.NEB. NEB SCH ×4 (08:56→20:01)
[2018-09-07 09:14] LABS: ANION GAP 8 MMOL/L (8-16); BLOOD UREA NITROGEN 22 mg/dL (7-18); CALCIUM 8.8 mg/dL (8.5-10.1); CHLORIDE 103 mmol/L (98-107); CO2 24 mmol/L (21-32); CREATININE 0.6 mg/dL (0.55-1.3); GLUCOSE,RANDOM 132 mg/dL (74-106); SODIUM 135 mmol/L (136-145)
[2018-09-07] MEDS ORDERED: DEXTROSE 5%-WATER 100 ML IVPB ONE (09:42)
[2018-09-07] MEDS: BACLOFEN 10 MG TABLET (FP) PO SCH (09:48)
[2018-09-07] MEDS: CLOPIDOGREL BISULFATE 75 MG TABLET (FP) PO SCH (09:48)
[2018-09-07] MEDS: amLODIPine BESYLATE 10 MG TABLET (FP) PO SCH (09:48)
[2018-09-07] MEDS: LISINOPRIL 10 MG TABLET (FP) PO SCH (09:48)
[2018-09-07] MEDS: PANTOPRAZOLE 40 MG TABLET (FP) PO SCH ×2 (09:48→22:12)
[2018-09-07] MEDS: MULTIVITAMINS (DAILY MVI) TABLET (FP) PO SCH (09:48)
[2018-09-07] MEDS: CEFTRIAXONE 2 GM in DEXTROSE 5%-WATER 100 ML IVPB SCH (09:49)
[2018-09-07] MEDS: MOMETASONE FUROATE 110 MCG/IH INHALER IH SCH ×2 (09:52→22:13)
[2018-09-07 09:59] LABS: ANISOCYTOSIS 3+; MACROCYTOSIS 0; PLATELET ESTIMATE NORMAL
[2018-09-07] MEDS: POLYETHYLENE GLYCOL 3350 255 GM BTL PO SCH (10:51)
--- NOTE | 2018-09-07 11:18 | PN ---
Progress Note (short form) - Note Progress Note: patient in bed reports chest tightness early am better now patient sleeping in bed comfortable re[ports less coughing overnight Vital Signs Period Temp Pulse Resp BP Sys/Das Pulse Ox Last 24 Hr 98.3 F-98.4 F 66-69 21-21 136-143/81-83 97 neck supple heart s1/S2 lung improved bs rhonchi at right base abd soft no tenderness ext no edema FROM CBC, BMP 09/05/18 06:40 09/05/18 06:40 Active Medications Acetaminophen (Tylenol -) 325 mg PO Q12H PRN PRN Reason: PAIN LEVEL 4-6 Acetaminophen (Tylenol -) 325 mg PO Q8H PRN PRN Reason: PAIN LEVEL 7-10 Albuterol/Ipratropium (Duoneb -) 1 amp NEB RQID [facility] Last Admin: 09/06/18 08:10 Dose: 1 amp Amlodipine Besylate (Norvasc -) 10 mg PO DAILY [facility] Last Admin: 09/05/18 10:15 Dose: 10 mg Atorvastatin Calcium (Lipitor -) 10 mg PO HS [facility] Last Admin: 09/05/18 22:09 Dose: 10 mg Baclofen (Lioresal -) 10 mg PO DAILY [facility] Last Admin: 09/06/18 09:57 Dose: 10 mg Clopidogrel Bisulfate (Plavix -) 75 mg PO DAILY [facility] Last Admin: 09/06/18 09:57 Dose: 75 mg Docusate Sodium (Colace -) 100 mg PO TID [facility] Last Admin: 09/06/18 06:28 Dose: 100 mg Guaifenesin (Robitussin -) 15 ml PO Q4H PRN PRN Reason: COUGH Last Admin: 09/05/18 17:24 Dose: 15 ml Ceftriaxone Sodium 2 gm/ (Dextrose) 100 mls @ 100 mls/hr IVPB DAILY [facility]; Protocol Last Admin: 09/06/18 09:56 Dose: 100 mls/hr Lisinopril (Prinivil) 20 mg PO DAILY [facility] Last Admin: 09/05/18 10:15 Dose: 20 mg Methylprednisolone Sodium Succinate (Solu-Medrol -) 40 mg IVPUSH Q8H-IV [facility] Last Admin: 09/06/18 09:51 Dose: 40 mg Metoprolol Succinate (Toprol Xl -) 100 mg PO DAILY [facility] Last Admin: 09/06/18 09:57 Dose: 100 mg Mometasone Furoate (Asmanex 110mcg -) 1 puff IH BID [facility] Last Admin: 09/06/18 09:59 Dose: 1 puff Multivitamins/Minerals/Vitamin C (Tab-A-Vit -) 1 tab PO DAILY [facility] Last Admin: 09/06/18 09:57 Dose: 1 tab Oxycodone HCl (Roxicodone -) 5 mg PO Q8H PRN PRN Reason: PAIN LEVEL 7 - 10 Pantoprazole Sodium (Protonix -) 40 mg PO BID [facility] Last Admin: 09/06/18 09:57 Dose: 40 mg Polyethylene Glycol (Miralax (For Bowel Prep) -) 17 gm PO DAILY [facility] Last Admin: 09/06/18 09:59 Dose: Not Given CXR bibasilar inc marking 78 y/o male with PMH of chronic pain, CAD (s/p NM, normal EF, on Plavix), anxiety, HTN, HLD, and prostate CA (s/p prostatectomy), who is presenting with complaints of worsening productive cough x2 weeks with associated subjective fevers/chills. No further chills or fever / breathing improved / cough productive # PNA CAP - ABX appreciate ID opinion steroids/ nedulizer / PPI / expectorants try to taper staroids in am # diarrhea/ abdomial pain stool guiac 2/2 to steroids ? inc PPI to BID cbc has remained stable # CAD continue home meds stable # HLD home meds stable # HTN monitor Bp Problem List - Problems (1) Pneumonia Code(s): J18.9 - PNEUMONIA, UNSPECIFIED ORGANISM Qualifiers: Pneumonia type: due to unspecified organism Laterality: right Lung location: lower lobe of lung Qualified Code(s): J18.1 - Lobar pneumonia, unspecified organism (2) Chest pain syndrome Code(s): R07.9 - CHEST PAIN, UNSPECIFIED (3) Chronic pain Code(s): G89.29 - OTHER CHRONIC PAIN (4) Atypical chest pain Code(s): R07.89 - OTHER CHEST PAIN (5) Coronary artery disease Code(s): I25.10 - ATHSCL HEART DISEASE OF [place] CORONARY ARTERY W/O ANG PCTRS Qualifiers: Coronary Disease-Associated Artery/Lesion type: [place] artery [place] vs. transplanted heart: [place] heart Associated angina: with unspecified angina Qualified Code(s): I25.119 - Atherosclerotic heart disease of [place] coronary artery with unspecified angina pectoris (6) History of prostate cancer Code(s): Z85.46 - PERSONAL HISTORY OF MALIGNANT NEOPLASM OF PROSTATE (7) Hypertension Code(s): I10 - ESSENTIAL (PRIMARY) HYPERTENSION Qualifiers: Hypertension type: essential hypertension Qualified Code(s): I10 - Essential (primary) hypertension
--- NOTE | 2018-09-07 11:23 | PN ---
Progress Note (short form) - Note Progress Note: sitting at [facility] reports less phlegm and improved breathing reports less coughing overnight today reports more diarrhea -- "very black " stool guiacs on order -- Vital Signs Period Temp Pulse Resp BP Sys/Das Pulse Ox Last 24 Hr 98.3 F-98.5 F 66-78 18-21 119-143/65-83 97 neck supple heart s1/S2 lung improved bs / intermittent wheezing right base abd soft no tenderness ext no edema FROM CBC, BMP 09/07/18 07:00 09/07/18 07:00 CBC, BMP 09/05/18 06:40 09/05/18 06:40 Active Medications Acetaminophen (Tylenol -) 325 mg PO Q12H PRN PRN Reason: PAIN LEVEL 4-6 Acetaminophen (Tylenol -) 325 mg PO Q8H PRN PRN Reason: PAIN LEVEL 7-10 Albuterol/Ipratropium (Duoneb -) 1 amp NEB RQID [facility] Last Admin: 09/07/18 08:56 Dose: 1 amp Amlodipine Besylate (Norvasc -) 10 mg PO DAILY [facility] Last Admin: 09/07/18 09:48 Dose: 10 mg Atorvastatin Calcium (Lipitor -) 10 mg PO HS [facility] Last Admin: 09/06/18 21:25 Dose: 10 mg Baclofen (Lioresal -) 10 mg PO DAILY [facility] Last Admin: 09/07/18 09:48 Dose: 10 mg Clopidogrel Bisulfate (Plavix -) 75 mg PO DAILY [facility] Last Admin: 09/07/18 09:48 Dose: 75 mg Docusate Sodium (Colace -) 100 mg PO TID [facility] Last Admin: 09/07/18 06:18 Dose: 100 mg Guaifenesin (Robitussin -) 15 ml PO Q4H PRN PRN Reason: COUGH Last Admin: 09/05/18 17:24 Dose: 15 ml Ceftriaxone Sodium 2 gm/ (Dextrose) 100 mls @ 100 mls/hr IVPB DAILY [facility]; Protocol Last Admin: 09/07/18 09:49 Dose: 100 mls/hr Lisinopril (Prinivil) 20 mg PO DAILY [facility] Last Admin: 09/07/18 09:48 Dose: 20 mg Methylprednisolone Sodium Succinate (Solu-Medrol -) 40 mg IVPUSH Q8H-IV [facility] Last Admin: 09/07/18 09:46 Dose: 40 mg Metoprolol Succinate (Toprol Xl -) 100 mg PO DAILY [facility] Last Admin: 09/07/18 09:47 Dose: 100 mg Mometasone Furoate (Asmanex 110mcg -) 1 puff IH BID [facility] Last Admin: 09/07/18 09:52 Dose: 1 puff Multivitamins/Minerals/Vitamin C (Tab-A-Vit -) 1 tab PO DAILY [facility] Last Admin: 09/07/18 09:48 Dose: 1 tab Oxycodone HCl (Roxicodone -) 5 mg PO Q8H PRN PRN Reason: PAIN LEVEL 7 - 10 Pantoprazole Sodium (Protonix -) 40 mg PO BID [facility] Last Admin: 09/07/18 09:48 Dose: 40 mg Polyethylene Glycol (Miralax (For Bowel Prep) -) 17 gm PO DAILY [facility] Last Admin: 09/06/18 09:59 Dose: Not Given 78 y/o male with PMH of chronic pain, CAD (s/p ID, normal EF, on Plavix), anxiety, HTN, HLD, and prostate CA (s/p prostatectomy), who is presenting with complaints of worsening productive cough x2 weeks with associated subjective fevers/chills. No further chills or fever / breathing improved / cough productive # PNA CAP - ABX appreciate ID opinion steroids/ nedulizer / PPI / expectorants taper staroids # diarrhea/ abdomial pain stool guiac 2/2 to steroids ? inc PPI to BID cbc has remained stable # CAD continue home meds stable # HLD home meds stable # HTN monitor Bp Problem List - Problems (1) Pneumonia Code(s): J18.9 - PNEUMONIA, UNSPECIFIED ORGANISM Qualifiers: Pneumonia type: due to unspecified organism Laterality: right Lung location: lower lobe of lung Qualified Code(s): J18.1 - Lobar pneumonia, unspecified organism (2) Chest pain syndrome Code(s): R07.9 - CHEST PAIN, UNSPECIFIED (3) Chronic pain Code(s): G89.29 - OTHER CHRONIC PAIN (4) Atypical chest pain Code(s): R07.89 - OTHER CHEST PAIN (5) Coronary artery disease Code(s): I25.10 - ATHSCL HEART DISEASE OF [place] CORONARY ARTERY W/O ANG PCTRS Qualifiers: Coronary Disease-Associated Artery/Lesion type: [place] artery [place] vs. transplanted heart: [place] heart Associated angina: with unspecified angina Qualified Code(s): I25.119 - Atherosclerotic heart disease of [place] coronary artery with unspecified angina pectoris (6) History of prostate cancer Code(s): Z85.46 - PERSONAL HISTORY OF MALIGNANT NEOPLASM OF PROSTATE (7) Hypertension Code(s): I10 - ESSENTIAL (PRIMARY) HYPERTENSION Qualifiers: Hypertension type: essential hypertension Qualified Code(s): I10 - Essential (primary) hypertension
[2018-09-07] MEDS: ATORVASTATIN CA 10 MG TABLET (FP) PO SCH (22:12)
[2018-09-08] MEDS: DOCUSATE SODIUM 100 MG CAPSULE (FP) PO SCH ×3 (06:21→22:08)
[2018-09-08 07:02] LABS: BASO % 0.1 % (0-2.0); EOS % 0.1 % (0-4.5); HEMATOCRIT 46.5 % (35.4-49); HEMOGLOBIN 16.1 GM/dL (11.7-16.9); LYMPH % 13.5 % (8-40); MCH 31.9 pg (25.7-33.7); MCHC 34.7 g/dl (32.0-35.9); MEAN CELL VOLUME 92.1 fl (80-96); MEAN PLT VOLUME 9.6 fl (7.5-11.1); MONO % 8.8 % (3.8-10.2); NEUT % 77.5 % (42.8-82.8); PLATELET COUNT 189 K/MM3 (134-434); RBC 5.05 M/mm3 (4.00-5.60); RDW 13.8 % (11.9-15.9)
[2018-09-08 07:33] LABS: ANION GAP 7 MMOL/L (8-16); BLOOD UREA NITROGEN 21 mg/dL (7-18); CALCIUM 7.9 mg/dL (8.5-10.1); CHLORIDE 105 mmol/L (98-107); CO2 28 mmol/L (21-32); CREATININE 0.7 mg/dL (0.55-1.3); GLUCOSE,RANDOM 116 mg/dL (74-106); MAGNESIUM 2.5 mg/dL (1.8-2.4); POTASSIUM 3.5 mmol/L (3.5-5.1); SODIUM 140 mmol/L (136-145)
[2018-09-08] MEDS: ALBUTEROL SO4 2.5/IPRATROPIUM 0.5 INH SOL 3 ML VIAL.NEB. NEB SCH ×4 (07:57→19:45)
[2018-09-08 10:20] LABS: PLATELET ESTIMATE NORMAL
[2018-09-08] MEDS ORDERED: PT OWN MED DRAWER 7, Y5N ONE (11:30)
[2018-09-08] MEDS ORDERED: DEXTROSE 5%-WATER 100 ML IVPB ONE (11:31)
[2018-09-08] MEDS: CEFTRIAXONE 2 GM in DEXTROSE 5%-WATER 100 ML IVPB SCH (11:59)
[2018-09-08] MEDS: BACLOFEN 10 MG TABLET (FP) PO SCH (11:59)
[2018-09-08] MEDS: PANTOPRAZOLE 40 MG TABLET (FP) PO SCH ×2 (11:59→22:08)
[2018-09-08] MEDS: LISINOPRIL 10 MG TABLET (FP) PO SCH (12:00)
[2018-09-08] MEDS: CLOPIDOGREL BISULFATE 75 MG TABLET (FP) PO SCH (12:02)
[2018-09-08] MEDS: POLYETHYLENE GLYCOL 3350 255 GM BTL PO SCH ×2 (12:02→12:17)
[2018-09-08] MEDS: amLODIPine BESYLATE 10 MG TABLET (FP) PO SCH (12:02)
[2018-09-08] MEDS: methylPREDNISolone NA SUCC 40 MG/1 ML VIAL IVPUSH SCH (12:03)
[2018-09-08] MEDS: MULTIVITAMINS (DAILY MVI) TABLET (FP) PO SCH (12:03)
[2018-09-08] MEDS: MOMETASONE FUROATE 110 MCG/IH INHALER IH SCH ×2 (12:14→22:12)
--- NOTE | 2018-09-08 19:19 | PN ---
Progress Note (short form) - Note Progress Note: in bed comfortable reports "wheezing earlier today " however none at this time less diarrhea /but still black no abdomial pain discuss with RN to obtain stool guiacs stool guiacs on order -- steroids decreased to once daily Vital Signs Period Temp Pulse Resp BP Sys/Das Pulse Ox Last 24 Hr 97.4 F-97.8 F 77-98 18 140-145/88-99 97 neck supple heart s1/S2 lung improved bs / no wheezing abd soft no tenderness ext no edema FROM CBC, BMP 09/08/18 06:00 09/08/18 06:00 CBC, BMP 09/07/18 07:00 09/07/18 07:00 CBC, BMP 09/05/18 06:40 09/05/18 06:40 Microbiology 09/06/18 14:10 Urine For Antigen Detection Legionella Antigen - Final 09/06/18 14:10 Urine For Antigen Detection Streptococcus pneumoniae Antigen (M - Final Active Medications Acetaminophen (Tylenol -) 325 mg PO Q12H PRN PRN Reason: PAIN LEVEL 4-6 Acetaminophen (Tylenol -) 325 mg PO Q8H PRN PRN Reason: PAIN LEVEL 7-10 Albuterol/Ipratropium (Duoneb -) 1 amp NEB RQID [facility] Last Admin: 09/08/18 16:36 Dose: 1 amp Amlodipine Besylate (Norvasc -) 10 mg PO DAILY [facility] Last Admin: 09/08/18 12:02 Dose: 10 mg Atorvastatin Calcium (Lipitor -) 10 mg PO HS [facility] Last Admin: 09/07/18 22:12 Dose: 10 mg Baclofen (Lioresal -) 10 mg PO DAILY [facility] Last Admin: 09/08/18 11:59 Dose: 10 mg Clopidogrel Bisulfate (Plavix -) 75 mg PO DAILY [facility] Last Admin: 09/08/18 12:02 Dose: 75 mg Docusate Sodium (Colace -) 100 mg PO TID [facility] Last Admin: 09/08/18 15:38 Dose: 100 mg Guaifenesin (Robitussin -) 15 ml PO Q4H PRN PRN Reason: COUGH Last Admin: 09/05/18 17:24 Dose: 15 ml Ceftriaxone Sodium 2 gm/ (Dextrose) 100 mls @ 100 mls/hr IVPB DAILY [facility]; Protocol Last Admin: 09/08/18 11:59 Dose: 100 mls/hr Lisinopril (Prinivil) 20 mg PO DAILY [facility] Last Admin: 09/08/18 12:00 Dose: 20 mg Methylprednisolone Sodium Succinate (Solu-Medrol -) 40 mg IVPUSH DAILY [facility] Last Admin: 09/08/18 12:03 Dose: 40 mg Metoprolol Succinate (Toprol Xl -) 100 mg PO DAILY [facility] Last Admin: 09/08/18 12:01 Dose: 100 mg Mometasone Furoate (Asmanex 110mcg -) 1 puff IH BID [facility] Last Admin: 09/08/18 12:14 Dose: 1 puff Multivitamins/Minerals/Vitamin C (Tab-A-Vit -) 1 tab PO DAILY [facility] Last Admin: 09/08/18 12:03 Dose: 1 tab Oxycodone HCl (Roxicodone -) 5 mg PO Q8H PRN PRN Reason: PAIN LEVEL 7 - 10 Pantoprazole Sodium (Protonix -) 40 mg PO BID [facility] Last Admin: 09/08/18 11:59 Dose: 40 mg Polyethylene Glycol (Miralax (For Bowel Prep) -) 17 gm PO DAILY [facility] Last Admin: 09/08/18 12:17 Dose: Not Given 78 y/o male with PMH of chronic pain, CAD (s/p [place], normal EF, on Plavix), anxiety, HTN, HLD, and prostate CA (s/p prostatectomy), who is presenting with complaints of worsening productive cough x2 weeks with associated subjective fevers/chills. No further chills or fever / breathing improved / cough productive # PNA CAP - ABX appreciate ID opinion tapered steroids/ nedulizer / PPI / expectorants taper staroids to d/c # diarrhea/ abdomial pain stool guiac on order 2/2 to steroids ? inc PPI to BID cbc has remained stable # CAD continue home meds stable # HLD home meds stable # HTN monitor Bp Problem List - Problems (1) Pneumonia Code(s): J18.9 - PNEUMONIA, UNSPECIFIED ORGANISM Qualifiers: Pneumonia type: due to unspecified organism Laterality: right Lung location: lower lobe of lung Qualified Code(s): J18.1 - Lobar pneumonia, unspecified organism (2) Chest pain syndrome Code(s): R07.9 - CHEST PAIN, UNSPECIFIED (3) Chronic pain Code(s): G89.29 - OTHER CHRONIC PAIN (4) Atypical chest pain Code(s): R07.89 - OTHER CHEST PAIN (5) Coronary artery disease Code(s): I25.10 - ATHSCL HEART DISEASE OF [place] CORONARY ARTERY W/O ANG PCTRS Qualifiers: Coronary Disease-Associated Artery/Lesion type: [place] artery [place] vs. transplanted heart: [place] heart Associated angina: with unspecified angina Qualified Code(s): I25.119 - Atherosclerotic heart disease of [place] coronary artery with unspecified angina pectoris (6) History of prostate cancer Code(s): Z85.46 - PERSONAL HISTORY OF MALIGNANT NEOPLASM OF PROSTATE (7) Hypertension Code(s): I10 - ESSENTIAL (PRIMARY) HYPERTENSION Qualifiers: Hypertension type: essential hypertension Qualified Code(s): I10 - Essential (primary) hypertension
[2018-09-08] MEDS: ATORVASTATIN CA 10 MG TABLET (FP) PO SCH (22:08)
[2018-09-09] MEDS: DOCUSATE SODIUM 100 MG CAPSULE (FP) PO SCH ×2 (07:06→15:08)
[2018-09-09] MEDS: ALBUTEROL SO4 2.5/IPRATROPIUM 0.5 INH SOL 3 ML VIAL.NEB. NEB SCH ×4 (07:25→20:05)
[2018-09-09 08:04] LABS: BASO % 0.1 % (0-2.0); EOS % 0.6 % (0-4.5); HEMATOCRIT 49.6 % (35.4-49); LYMPH % 13.7 % (8-40); MCH 31.7 pg (25.7-33.7); MCHC 34.3 g/dl (32.0-35.9); MEAN CELL VOLUME 92.2 fl (80-96); MEAN PLT VOLUME 9.1 fl (7.5-11.1); MONO % 8.3 % (3.8-10.2); NEUT % 77.3 % (42.8-82.8); PLATELET COUNT 178 K/MM3 (134-434); RBC 5.38 M/mm3 (4.00-5.60); RDW 13.7 % (11.9-15.9); WHITE BLOOD COUNT 10.8 K/mm3 (4.0-10.0)
[2018-09-09 08:32] LABS: ANION GAP 5 MMOL/L (8-16); BLOOD UREA NITROGEN 18 mg/dL (7-18); CALCIUM 8.6 mg/dL (8.5-10.1); CHLORIDE 101 mmol/L (98-107); CO2 33 mmol/L (21-32); CREATININE 0.8 mg/dL (0.55-1.3); GLUCOSE,RANDOM 87 mg/dL (74-106); POTASSIUM 3.8 mmol/L (3.5-5.1); SODIUM 139 mmol/L (136-145)
[2018-09-09] MEDS ORDERED: PT OWN MED DRAWER 7, Y5N ONE (10:17)
[2018-09-09] MEDS ORDERED: DEXTROSE 5%-WATER 100 ML IVPB ONE (10:17)
[2018-09-09] MEDS: methylPREDNISolone NA SUCC 40 MG/1 ML VIAL IVPUSH SCH (10:22)
[2018-09-09] MEDS: CEFTRIAXONE 2 GM in DEXTROSE 5%-WATER 100 ML IVPB SCH (10:22)
[2018-09-09] MEDS: PANTOPRAZOLE 40 MG TABLET (FP) PO SCH ×2 (10:23→22:27)
[2018-09-09] MEDS: LISINOPRIL 10 MG TABLET (FP) PO SCH (10:23)
[2018-09-09] MEDS: amLODIPine BESYLATE 10 MG TABLET (FP) PO SCH (10:23)
[2018-09-09] MEDS: BACLOFEN 10 MG TABLET (FP) PO SCH (10:23)
[2018-09-09] MEDS: CLOPIDOGREL BISULFATE 75 MG TABLET (FP) PO SCH (10:24)
[2018-09-09] MEDS: MULTIVITAMINS (DAILY MVI) TABLET (FP) PO SCH (10:24)
[2018-09-09] MEDS: MOMETASONE FUROATE 110 MCG/IH INHALER IH SCH ×2 (10:26→22:28)
[2018-09-09] MEDS: POLYETHYLENE GLYCOL 3350 255 GM BTL PO SCH (10:36)
[2018-09-09 10:56] LABS: ANISOCYTOSIS 0; HELMET CELLS 0; HOWELL-JOLLY BODIES 0; MACROCYTOSIS 0; OVALOCYTE 0; PLATELET ESTIMATE NORMAL; ROULEAU 0; SICKELED CELLS 0; TARGET CELLS 0; TEAR DROP CELLS 0; TOXIC GRANULATION 0
--- NOTE | 2018-09-09 14:10 | PN ---
Progress Note (short form) - Note Progress Note: in bed comfortable reports wheezing but none at this time less diarrhea /but still black -guiac negative / cbc stable no abdomial pain stool guiacs series on order -- yesterday negative steroids decreased to once daily Vital Signs Period Temp Pulse Resp BP Sys/Das Pulse Ox Last 24 Hr 97.4 F-98.2 F 77-98 20 120-150/83-88 98 neck supple heart s1/S2 lung improved bs / no wheezing abd soft no tenderness ext no edema FROM CBC, [facility] 09/09/18 07:00 09/09/18 07:00 Sttool -- guaic negative CBC, [facility] 09/08/18 06:00 09/08/18 06:00 CBC, [facility] 09/07/18 07:00 09/07/18 07:00 CBC, [facility] 09/05/18 06:40 09/05/18 06:40 Microbiology 09/06/18 14:10 Urine For Antigen Detection Legionella Antigen - Final 09/06/18 14:10 Urine For Antigen Detection Streptococcus pneumoniae Antigen (M - Final Active Medications Acetaminophen (Tylenol -) 325 mg PO Q12H PRN PRN Reason: PAIN LEVEL 4-6 Acetaminophen (Tylenol -) 325 mg PO Q8H PRN PRN Reason: PAIN LEVEL 7-10 Albuterol/Ipratropium (Duoneb -) 1 amp NEB RQID [facility] Last Admin: 09/09/18 11:10 Dose: 1 amp Amlodipine Besylate (Norvasc -) 10 mg PO DAILY [facility] Last Admin: 09/09/18 10:23 Dose: 10 mg Atorvastatin Calcium (Lipitor -) 10 mg PO HS [facility] Last Admin: 09/08/18 22:08 Dose: 10 mg Baclofen (Lioresal -) 10 mg PO DAILY [facility] Last Admin: 09/09/18 10:23 Dose: 10 mg Clopidogrel Bisulfate (Plavix -) 75 mg PO DAILY [facility] Last Admin: 09/09/18 10:24 Dose: 75 mg Guaifenesin (Robitussin -) 15 ml PO Q4H PRN PRN Reason: COUGH Last Admin: 09/05/18 17:24 Dose: 15 ml Sodium Chloride (1/2 Normal Saline) 1,000 mls @ 150 mls/hr IV ASDIR [facility] Lisinopril (Prinivil) 20 mg PO DAILY [facility] Last Admin: 09/09/18 10:23 Dose: 20 mg Methylprednisolone Sodium Succinate (Solu-Medrol -) 40 mg IVPUSH DAILY [facility] Last Admin: 09/09/18 10:22 Dose: 40 mg Metoprolol Succinate (Toprol Xl -) 100 mg PO DAILY [facility] Last Admin: 09/09/18 10:25 Dose: 100 mg Mometasone Furoate (Asmanex 110mcg -) 1 puff IH BID [facility] Last Admin: 09/09/18 10:26 Dose: 1 puff Multivitamins/Minerals/Vitamin C (Tab-A-Vit -) 1 tab PO DAILY [facility] Last Admin: 09/09/18 10:24 Dose: 1 tab Oxycodone HCl (Roxicodone -) 5 mg PO Q8H PRN PRN Reason: PAIN LEVEL 7 - 10 Pantoprazole Sodium (Protonix -) 40 mg PO BID [facility] Last Admin: 09/09/18 10:23 Dose: 40 mg Polyethylene Glycol (Miralax (For Bowel Prep) -) 17 gm PO DAILY [facility] Last Admin: 09/09/18 10:36 Dose: Not Given 78 y/o male with PMH of chronic pain, CAD (s/p [place], normal EF, on Plavix), anxiety, HTN, HLD, and prostate CA (s/p prostatectomy), who is presenting with complaints of worsening productive cough x2 weeks with associated subjective fevers/chills. No further chills or fever / breathing improved / cough productive # PNA CAP - ABX - completed tapered steroids/ nedulizer / PPI / expectorants taper staroids to d/c # diarrhea/ abdomial pain stool guiac negative 2/2 to steroids ? inc PPI to BID cbc has remained stable / slight inc 2/2 to mild dehydration -- IV fluids [id number] # CAD continue home meds stable # HLD home meds stable # HTN monitor Bp Problem List - Problems (1) Pneumonia Code(s): J18.9 - PNEUMONIA, UNSPECIFIED ORGANISM Qualifiers: Pneumonia type: due to unspecified organism Laterality: right Lung location: lower lobe of lung Qualified Code(s): J18.1 - Lobar pneumonia, unspecified organism (2) Chest pain syndrome Code(s): R07.9 - CHEST PAIN, UNSPECIFIED (3) Chronic pain Code(s): G89.29 - OTHER CHRONIC PAIN (4) Atypical chest pain Code(s): R07.89 - OTHER CHEST PAIN (5) Coronary artery disease Code(s): I25.10 - ATHSCL HEART DISEASE OF [place] CORONARY ARTERY W/O ANG PCTRS Qualifiers: Coronary Disease-Associated Artery/Lesion type: [place] artery [place] vs. transplanted heart: [place] heart Associated angina: with unspecified angina Qualified Code(s): I25.119 - Atherosclerotic heart disease of [place] coronary artery with unspecified angina pectoris (6) History of prostate cancer Code(s): Z85.46 - PERSONAL HISTORY OF MALIGNANT NEOPLASM OF PROSTATE (7) Hypertension Code(s): I10 - ESSENTIAL (PRIMARY) HYPERTENSION Qualifiers: Hypertension type: essential hypertension Qualified Code(s): I10 - Essential (primary) hypertension
[2018-09-09] MEDS: SODIUM CHLORIDE 0.45% 1,000 ML IV SCH ×2 (14:49→22:31)
[2018-09-09] MEDS: ATORVASTATIN CA 10 MG TABLET (FP) PO SCH (22:27)
[2018-09-10] MEDS: SODIUM CHLORIDE 0.45% 1,000 ML IV SCH (04:13)
[2018-09-10 07:16] LABS: ANION GAP 5 MMOL/L (8-16); BLOOD UREA NITROGEN 18 mg/dL (7-18); CALCIUM 8.1 mg/dL (8.5-10.1); CHLORIDE 104 mmol/L (98-107); CO2 26 mmol/L (21-32); CREATININE 0.7 mg/dL (0.55-1.3); GLUCOSE,RANDOM 92 mg/dL (74-106); POTASSIUM 3.6 mmol/L (3.5-5.1); SODIUM 135 mmol/L (136-145)
[2018-09-10 07:23] LABS: EOS % 0.7 % (0-4.5); HEMATOCRIT 46.8 % (35.4-49); HEMOGLOBIN 16.4 GM/dL (11.7-16.9); MEAN CELL VOLUME 91.3 fl (80-96); MEAN PLT VOLUME 8.9 fl (7.5-11.1); MONO % 8.2 % (3.8-10.2); NEUT % 80.1 % (42.8-82.8); PLATELET COUNT 176 K/MM3 (134-434); RBC 5.13 M/mm3 (4.00-5.60); RDW 14.1 % (11.9-15.9); WHITE BLOOD COUNT 11.7 K/mm3 (4.0-10.0)
[2018-09-10] MEDS: ALBUTEROL SO4 2.5/IPRATROPIUM 0.5 INH SOL 3 ML VIAL.NEB. NEB SCH ×2 (07:35→11:40)
[2018-09-10] MEDS ORDERED: PT OWN MED DRAWER 7, Y5N ONE (09:33)
[2018-09-10] MEDS: CLOPIDOGREL BISULFATE 75 MG TABLET (FP) PO SCH (09:37)
[2018-09-10] MEDS: MULTIVITAMINS (DAILY MVI) TABLET (FP) PO SCH (09:37)
[2018-09-10] MEDS: LISINOPRIL 10 MG TABLET (FP) PO SCH (09:37)
[2018-09-10] MEDS: methylPREDNISolone NA SUCC 40 MG/1 ML VIAL IVPUSH SCH (09:37)
[2018-09-10] MEDS: BACLOFEN 10 MG TABLET (FP) PO SCH (09:37)
[2018-09-10] MEDS: amLODIPine BESYLATE 10 MG TABLET (FP) PO SCH (09:37)
[2018-09-10] MEDS: PANTOPRAZOLE 40 MG TABLET (FP) PO SCH (09:37)
[2018-09-10] MEDS: POLYETHYLENE GLYCOL 3350 255 GM BTL PO SCH (09:38)
[2018-09-10] MEDS: MOMETASONE FUROATE 110 MCG/IH INHALER IH SCH (09:42)
--- NOTE | 2018-09-10 11:43 | DS ---
Physical Examination Vital Signs: Vital Signs Temperature 97.8 F 09/10/18 06:22 Pulse Rate 92 H 09/10/18 08:25 Respiratory Rate 20 09/10/18 06:22 Blood Pressure 139/86 09/10/18 06:22 O2 Sat by Pulse Oximetry (%) 97 09/10/18 08:25 Findings/Remarks: 78 y/o male with PMH of chronic pain, CAD (s/p [place], normal EF, on Plavix), anxiety, HTN, HLD, and prostate CA (s/p prostatectomy), who is presenting with complaints of worsening productive cough x2 weeks with associated subjective fevers/chills. No further chills or fever / breathing improved / cough productive # PNA CAP - ABX - completed tapered steroids/ nedulizer / PPI / expectorants no steroids for home use # diarrhea/ abdomial pain stool guiac negative 06/29 to steroids ? to continue PPI daily for 2 weeks as out patient cbc has remained stable # CAD continue home meds stable # HLD home meds stable # HTN monitor Bp patient scheduled for out patient follow up sunday at [address] Constitutional: Yes: Well Nourished, No Distress, Calm Eyes: Yes: Conjunctiva Clear, EOM Intact Neck: Yes: Trachea Midline Cardiovascular: Yes: Regular Rate and Rhythm Respiratory: Yes: Regular, CTA Bilaterally Gastrointestinal: Yes: Normal Bowel Sounds ...Rectal Exam: Yes: Deferred Renal/: Yes: WNL Breast(s): Yes: WNL Musculoskeletal: Yes: WNL Extremities: Yes: WNL Edema: No Peripheral Pulses WNL: Yes Integumentary: Yes: WNL Neurological: Yes: WNL, Alert, Oriented ...Motor Strength: WNL Psychiatric: Yes: WNL Labs: CBC, BMP 09/10/18 06:00 09/10/18 06:00 Discharge Summary Reason For Visit: PNEUMONIA Current Active Problems Pneumonia (Acute) Condition: Improved - Instructions Disposition: HOME - Home Medications Comprehensive Discharge Medication List: Ambulatory Orders Atorvastatin Ca [Lipitor] 10 mg PO HS #30 tablet 04/01/14 Clopidogrel Bisulfate [Clopidogrel] 75 mg PO DAILY 08/03/16 Metoprolol Succinate [Toprol XL -] 100 mg PO DAILY #30 tab.sr.24h 02/07/18 Amlodipine Besylate [Norvasc -] 10 mg PO DAILY #30 tablet 07/24/18 Baclofen 10 mg PO DAILY 30 Days #30 tablet MDD 1 07/24/18 Docusate Sodium [Colace -] 100 mg PO TID #90 capsule 07/24/18 Lisinopril/Hydrochlorothiazide [Lisinopril-Hctz 20-12.5 mg Tab] 1 each PO DAILY #30 tablet MDD 1 07/24/18 Multivitamin [Multiple Vitamins] 1 each PO DAILY #30 tablet 07/24/18 Polyethylene Glycol 3350 [Miralax 255 gm Btl -] 17 gm PO DAILY #1 btl 07/24/18 Acetaminophen [Tylenol .Regular Strength -] 325 mg PO Q12H PRN tablet 07/27/18 Diclofenac Sodium 2 gm TP TID PRN #1 tube 08/20/18 Oxycodone HCl/Acetaminophen [Endocet 5-325 Tablet] 1 each PO TID PRN #90 tablet MDD 3 08/20/18 Acetaminophen [Tylenol .Regular Strength -] 325 mg PO Q8H PRN tablet 09/10/18 Albuterol 2.5/Ipratropium 0.5 [Duoneb -] 1 amp NEB RQID amp 09/10/18 Guaifenesin [Robitussin -] 15 ml PO Q4H PRN cup 09/10/18 Mometasone Furoate [Asmanex 110Mcg -] 1 puff IH BID 30 Days #1 inhaler 09/10/18 Pantoprazole Sodium [Protonix -] 40 mg PO DAILY #14 tablet.ec 09/10/18
[2018-09-10 11:55] LABS: ANISOCYTOSIS 2+; MACROCYTOSIS 0; PLATELET ESTIMATE NORMAL
[2018-09-10 13:19] VITALS: BP 132/81; PULSE 78; TEMP 98
== END 2018-09-10 14:13 | disposition home or self-care (01) | DRG 195 ==
LOC: JER 10:23 → JERBED 12:57 → J6S 09-03 00:43
PROVIDERS: ADMIT Family Medicine; ATTEND Family Medicine
DX: J18.1 Lobar pneumonia, unspecified organism (principal); E78.5 Hyperlipidemia, unspecified; I25.10 Atherosclerotic heart disease of native coronary artery without angina pectoris; R06.82 Tachypnea, not elsewhere classified; I10 Essential (primary) hypertension; R19.7 Diarrhea, unspecified; R07.89 Other chest pain; E66.9 Obesity, unspecified; Z68.30 Body mass index [BMI] 30.0-30.9, adult; R00.0 Tachycardia, unspecified
CPT/HCPCS: 36415; 71045-TC-FY; 80048; 80053; 81003; 82272; 82550; 83735; 84484; 85025; 85027; 87804; 87899; 93005; 93010; 94640; 94761; 97116-GP; 97161-GP; 99284-25; J0475

== ENCOUNTER 2021-07-04 20:16 | Emergency (ER) | payer OTHER ==
[2021-07-04 20:57] VITALS: BP 142/86; TEMP 99; BMI 34.8
[2021-07-05] MEDS ORDERED: ACETAMINOPHEN 325 MG TABLET (FP) PO ONE (00:18)
[2021-07-05] MEDS ORDERED: ACETAMINOPHEN 325 MG TABLET (FP) ONE (01:20)
[2021-07-05 01:37] LABS: BASO % 0.5 % (0-2.0); EOS % 0.4 % (0-4.5); HEMATOCRIT 42.6 % (35.4-49); HEMOGLOBIN 14.7 GM/dL (11.7-16.9); LYMPH % 14.7 % (8-40); MCH 31.4 pg (25.7-33.7); MCHC 34.6 g/dl (32.0-35.9); MEAN CELL VOLUME 90.7 fl (80-96); MEAN PLT VOLUME 8.6 fl (7.5-11.1); MONO % 12.6 % (3.8-10.2); NEUT % 71.8 % (42.8-82.8); PLATELET COUNT 193 10^3/uL (134-434); RDW 13.7 % (11.9-15.9); WHITE BLOOD COUNT 8.4 K/mm3 (4.0-10.0)
[2021-07-05 01:58] LABS: CALCIUM 9.5 mg/dL (8.5-10.1)
[2021-07-05 02:00] LABS: ALBUMIN 3.3 g/dl (3.4-5.0); BLOOD UREA NITROGEN 11.3 mg/dL (7-18)
[2021-07-05 02:02] LABS: CREATININE 0.8 mg/dL (0.55-1.3)
== END 2021-07-05 06:45 | disposition home or self-care (01) ==
LOC: JER 20:16
DX: R22.32 Localized swelling, mass and lump, left upper limb (principal); M54.2 Cervicalgia; M54.50 Low back pain, unspecified
CPT/HCPCS: 36415; 70491-TC; 71260-TC; 80053; 84484; 85025; 93005; 93010; 93971; 99285-25; C9803; Q9967; U0003; U0005